=== PATIENT | female | born 1965 | race Hispanic/Latino ===

== ENCOUNTER → 2019-02-15 | Outpatient (CLI) | payer OTHER | END | disposition home or self-care (01) | LOC: RAH 13:51 | PROVIDERS: ATTEND Family Medicine | DX: Z12.31 Encounter for screening mammogram for malignant neoplasm of breast (principal) | CPT/HCPCS: 77067 ==

== ENCOUNTER → 2019-04-23 | Outpatient (CLI) | payer OTHER | END | disposition home or self-care (01) | LOC: RAH 14:06 | PROVIDERS: ATTEND Physical Medicine & Rehabilitation | DX: M41.86 Other forms of scoliosis, lumbar region (principal) | CPT/HCPCS: 72110 ==

== ENCOUNTER → 2019-06-17 | Outpatient (CLI) | payer OTHER | END | disposition home or self-care (01) | LOC: RAH 10:48 | PROVIDERS: ATTEND Family Medicine | DX: N32.89 Other specified disorders of bladder (principal) | CPT/HCPCS: 76856 ==

== ENCOUNTER → 2022-09-13 | Outpatient (CLI) | payer OTHER | END | disposition home or self-care (01) | LOC: RAH 13:57 | PROVIDERS: ATTEND Family Medicine | DX: Z12.31 Encounter for screening mammogram for malignant neoplasm of breast (principal); R92.1 Mammographic calcification found on diagnostic imaging of breast | CPT/HCPCS: 77067 ==

== ENCOUNTER 2024-07-09 09:21 | Emergency (ER) | payer OTHER ==
[~2024-07-09] VITALS: Ht 147.3 cm; Wt 63.5 kg
--- NOTE | 2024-07-09 10:18 | ERN ---
ED Note History of Present Illness Stated Complaint: VOMITING Chief Complaint: Nausea,Vomiting,Diarrhea Time Seen by MD: 09:31 Dictation: The patient is a 58-year-old female who is wheelchair-bound and has a medical history that includes chronic total parenteral nutrition for the past year, a gastric fistula, and an established colostomy, Betlem muscular dystrophy presented to the emergency department with primary complaints of fever and chills that began yesterday. Additionally, she is experiencing nausea, reported 2 episodes of vomiting which includes water and bile, and headaches. For the past year, she has been receiving 1500 cc of total parenteral nutrition daily at home. She was previously admitted to a [place] facility a month ago for sepsis and has returned today, suspecting a possible recurrence of a blood infection. She denies experiencing shortness of breath, weakness, abdominal pain, dizzi ness, or any other symptoms. Allergies: Coded Allergies: No Known Drug Allergies (Unverified Allergy, Unknown, 07/09/24) Home Meds Active Scripts Cephalexin (Cephalexin) 500 Mg Tablet, 1 TAB PO BID for 7 Days, #14 TAB 0 Refills Prov:CASSIDY KRISHNAMURTHY MD 07/09/24 Past Medical History Past Medical History: No Pertinent History Surgical History: Cholecystectomy Surgical History Other: INTESTINAL SURGERY Review of System Dictation REVIEW OF SYSTEMS CONSTITUTIONAL: Denies fevers, chills, or night sweats. No unintentional weight loss reported. NEUROLOGICAL: Denies headache, amaurosis fugax, motor weakness, sensory deficit, vertigo/spinning sensation, gait abnormalities, or tremors. ENT: No hearing loss, otalgia, otorrhea, rhinitis, rhinorrhea, hoarseness, or sore throat. CARDIOVASCULAR: Denies any exertional angina, dyspnea on exertion, orthopnea, paroxysmal nocturnal dyspnea, palpitations, life-threatening arrhythmias, claudication. PULMONARY: Denies any shortness of breath, cough, phlegm/sputum, hemoptysis, pleuritic chest pain. SLEEP: Denies morning headaches, daytime somnolence or napping. Denies difficulty falling asleep, staying asleep, waking from sleep. Denies knowledge of snoring. GASTROINTESTINAL: Denies any type of dysphagia to either liquids or solids. Denies nausea, vomiting, pyrosis, early satiety, abdominal pain, diarrhea, constipation, or changes in stool consistency or caliber. Denies coffee-ground emesis, hematemesis, hematochezia, or melanotic stools. GENITOURINARY: Denies frequency, urgency, nocturia, hematuria or incontinence (Storage/Irritative symptoms.) Low urinary stream, straining to void, urinary intermittency or hesitancy, splitting of the voiding stream, terminal dribbling. ENDOCRINOLOGIC: Denies polyuria, polydipsia, polyphagia or heat/cold intoleranc es. HEMATOLOGIC: Denies thrombophilia/previous clots, or coagulopathy/bleeding disorders. ONCOLOGIC: Denies personal history of malignancy. DERMATOLOGIC: Denies rashes or pruritus. PSYCHIATRIC: Denies any suicidal or homicidal ideation. Denies hallucinations. Initial Vital Sign VS Vital Signs Date Time Temp Pulse Resp B/P (MAP) Pulse Ox O2 Delivery O2 Flow Rate FiO2 07/09/24 09:23 98.2 111 18 121/79 98 07/09/24 10:27 Room Air* 0 21 Physical Exam Dictation PHYSICAL EXAM GENERAL APPEARANCE: The patient is awake, alert, and oriented, in no acute cardiopulmonary distress. NEUROLOGICAL: Cranial nerves II-XII grossly intact. Motor is 5/5 in bilateral upper and lower extremities proximal to distal. No sensory deficits. HEENT: Face is symmetric. Pupils are equal and reactive. Extraocular movements are intact. NECK: Supple. No JVD. No thyromegaly. No submental, submandibular, pre- /postauricular, occipital or supraclavicular lymphadenopathy. CHEST: Normal chest expansion. No Telemetry. LUNGS: Absence of any rales, rhonchi or any wheezing. CARDIOVASCULAR: Regular. S1 and S2 normal. No appreciable rubs, murmurs or gallops. ABDOMEN: Soft, nontender, and nondistended. There is no rebound, voluntary g uarding, or rigidity. : Deferred. No Jack. EXTREMITIES: Non-edematous and not cyanotic. No clubbing. Good capillary refill. SKIN: No skin breakdown. Results (Laboratory/Radiology) Laboratory/Radiology Laboratory Tests Test 07/09/24 10:23 07/09/24 10:57 07/09/24 12:35 White Blood Count 4.8 K/uL (4.8-10.8) Red Blood Count 4.65 MIL/uL (4.00-5.50) Hemoglobin 13.3 g/dL (12.0-16.0) Hematocrit 40.6 % (36-48) Mean Corpuscular Volume 87.3 fL (79-99) Mean Corpuscular Hemoglobin 28.6 pg (27.0-33.0) Mean Corpuscular Hemoglobin Concent 32.8 g/dL (32.0-36.0) Red Cell Distribution Width 14.7 % (11.0-15.5) Platelet Count 158 K/uL (130-400) Mean Platelet Volume 11.0 fL (7.5-10.5) H Immature Granulocyte % (Auto) 0.4 % (0-1) Neutrophils (%) (Auto) 62.0 % (40.0-77.0) Lymphocytes (%) (Auto) 29.3 % (21.0-51.0) Monocytes (%) (Auto) 7.3 % (3.0-13.0) Eosinophils (%) (Auto) 0.6 % (0.0-8.0) Basophils (%) (Auto) 0.4 % (0.0-5.0) Neutrophils # (Auto) 3.0 K/uL (1.8-7.7) Lymphocytes # (Auto) 1.4 K/uL (1.0-4.8) Monocytes # (Auto) 0.4 K/uL (0.1-1.0) Eosinophils # (Auto) 0.03 K/uL (0.00-0.70) Basophils # (Auto) 0.02 K/uL (0.00-0.20) Absolute Immature Granulocyte (auto 0.02 K/uL (0-1) Nucleated Red Blood Cells 0.0 % (0.0-0.19) Sodium Level 137 mmol/L (136-145) Potassium Level 4.0 mmol/L (3.5-5.1) Chloride Level 101 mmol/L (101-111) Carbon Dioxide Level 28 mmol/L (21-32) Blood Urea Nitrogen 21 mg/dL (7-18) H Creatinine 0.2 mg/dL (0.5-1.0) L Glomerular Filtration Rate Calc 137 mL/min (>90) Random Glucose 112 mg/dL (70-105) H Lactic Acid Level 0.9 mmol/L (0.8-2.5) Total Calcium 8.7 mg/dL (8.5-10.1) Total Bilirubin 0.3 mg/dL (0.2-1.0) Aspartate Amino Transf (AST/SGOT) 44 U/L (10-37) H Alanine Aminotransferase (ALT/SGPT) 68 U/L (12-78) Alkaline Phosphatase 143 U/L (50-136) H Total Protein 7.8 g/dL (6.0-8.3) Albumin 3.1 g/dL (3.5-5.0) L Influenza Type A Antigen Negative For Type A Influenza Type B Antigen Negative For Type B SARS-CoV-2 Antigen (Rapid) PRESUMPTIVE NEGATIVE Group A Streptococcus Rapid negative (NEGATIVE) Urine Color YELLOW (YELLOW) Urine Appearance CLOUDY (CLEAR) H Urine pH 7.0 (5.0-8.0) Urine Specific [place] 1.021 (1.001-1.031) Urine Protein 10 mg/dL (NEGATIVE) H Urine Glucose (UA) 500 mg/dL (NEGATIVE) H Urine Ketones NEGATIVE mg/dL (NEGATIVE) Urine Occult Blood NEGATIVE (NEGATIVE) Urine Nitrate NEGATIVE (NEGATIVE) Urine Bilirubin NEGATIVE mg/dL (NEGATIVE) Urine Urobilinogen 0.2 mg/dL (0.2-1.0) Urine Leukocyte Esterase 250 Howie/uL (NEGATIVE) H Urine RBC 2-5 /HPF (0-1) H Urine WBC 51-100 /HPF (0-1) H Urine Squamous Epithelial Cells MANY /HPF (0-2) Urine Bacteria RARE /HPF (None Seen) Urine Yeast FEW /HPF (None Seen) ED Course ED Course Orders Procedure Category Date Status Time Cbc With Differential LAB 07/09/24 Complete 10:10 Comprehensive LAB 07/09/24 Complete Metabolic Panel 10:10 Urinalysis Profile LAB 07/09/24 Complete 10:10 Lactic Acid LAB 07/09/24 Complete 10:10 Ct Abdomen/Pelvis W/O CT 07/09/24 Resulted Contrast 10:10 0.9%Nacl 1000ml (Ns PHA 07/09/24 Complete 1000ml) 10:30 Covid19 (Sars Antigen LAB 07/09/24 Complete Rapid) 10:46 Influenza Type A & B, LAB 07/09/24 Complete Rapid 10:46 Rapid (Group A Strep) LAB 07/09/24 Complete 10:46 Chest 1vw RAD 07/09/24 Resulted 11:57 Culture Urine MIYA 07/09/24 In Process 12:50 Current Medications Medications (Trade) Dose Ordered Sig/Prem Route PRN Reason Start Time Stop Time Status Last Admin Dose Admin Sodium Chloride 1,000 ml @ 0 mls/hr ONCE ONCE IV 07/09/24 10:30 07/09/24 10:31 DC 07/09/24 10:49 Vital Signs Date Time Temp Pulse Resp B/P (MAP) Pulse Ox O2 Delivery O2 Flow Rate FiO2 07/09/24 14:08 98.2 100 16 120/72 98 Room Air* 0 21 07/09/24 10:27 98.2 105 16 120/75 98 Room Air* 0 21 07/09/24 09:23 98.2 111 18 121/79 98 Medical Decision Making MDM MDM Differential diagnosis: Urinary tract infection, acute dehydration, acute kidney injury Rationale: Tests considered and ordered secondary to shared decision making include: Previous outside records reviewed: Old ER visits. Risk of complication and/or morbidity or mortality of patient management: None Medications-Per medication reconciliation Need for hospitalization: Patient does not meet criteria for hospitalization. Need for emergency major/minor surgery: No There are no social concerns with this patient. Prescription drug management Prescriptions will include symptomatic care Patient's prior external medical records from other ER visits were reviewed by me as indicated. Prior testing and results from previous visits were reviewed. Prior tests were taken into account with medical decision making and resource utilization, independent historian/historians were used to obtain complete medical history. I independently interpreted the test that were performed, results were reviewed by me and considered findings on radiology if ordered. DX & DISP Disposition: Discharge Departure Impression: Primary Impression: Urinary tract infection Additional Impressions: Acute dehydration, Acute kidney injury Condition: Stable Scripts Cephalexin (Cephalexin) 500 Mg Tablet 1 TAB PO BID for 7 Days, #14 TAB 0 Refills Prov: CASISDY KRISHNAMURTHY MD 07/09/24 Additional Instructions: Start taking cephalexin 500 mg b.i.d. for 7 days. Hydration is [place]: Drink lots of water throughout the day to dilute your urine and help flush out bacteria causing the infection. Frequent urination: Empty your bladder regularly to prevent bacteria from accumulating. Avoid irritants: Limit drinks like coffee, alcohol, and carbonated beverages which can irritate your bladder. Pain relief: Use a heating pad on your lower abdomen to ease discomfort. Visit the nearest emergency department or call 911 should the symptoms gets worse or does not resolve within a week. Referrals: CHRISTEN JORGE MD (PCP) I have reviewed, & agreed with my scribe's, documentation. I have reviewed the case, and I agree with, Diagnosis and Plan I have examined patient, & reviewed all documents, & agreed W/ the Diagnosis, and Plan CASSIDY KRISHNAMURTHY MD Jul 09, 2024 10:18
[2024-07-09 10:41] LABS: BASOPHILS # (AUTO) 0.02 K/uL (0.00-0.20); BASOPHILS % (AUTO) 0.4 % (0.0-5.0); EOSINOPHILS # (AUTO) 0.03 K/uL (0.00-0.70); EOSINOPHILS % (AUTO) 0.6 % (0.0-8.0); HEMATOCRIT 40.6 % (36-48); IMMATURE GRANULOCYTE ABSOLUTE 0.02 K/uL (0-1); LYMPHOCYTES # (AUTO) 1.4 K/uL (1.0-4.8); LYMPHOCYTES % (AUTO) 29.3 % (21.0-51.0); MEAN CORPUSCULAR HEMOGLOBIN 28.6 pg (27.0-33.0); MEAN CORPUSCULAR HGB CONC 32.8 g/dL (32.0-36.0); MEAN CORPUSCULAR VOLUME 87.3 fL (79-99); MONOCYTES # (AUTO) 0.4 K/uL (0.1-1.0); MONOCYTES % (AUTO) 7.3 % (3.0-13.0); PLATELET COUNT (AUTO) 158 K/uL (130-400); RED BLOOD CELL COUNT(AUTO) 4.65 MIL/uL (4.00-5.50); RED CELL DISTRIBUTION WIDTH 14.7 % (11.0-15.5); WHITE BLOOD COUNT (AUTO) 4.8 K/uL (4.8-10.8)
[2024-07-09 10:49] LABS: CREATININE 0.2 mg/dL (0.5-1.0)
[2024-07-09] MEDS: 0.9%NACL 1000ML 1,000 ML IV ONE (10:49)
[2024-07-09 10:56] LABS: ALBUMIN 3.1 g/dL (3.5-5.0); BILIRUBIN,TOTAL 0.3 mg/dL (0.2-1.0); TOTAL PROTEIN, SERUM 7.8 g/dL (6.0-8.3)
--- NOTE | 2024-07-09 10:58 | HMCIMG ---
Exam Type: CT ABDOMEN/PELVIS W/O CONTRAST Clinical Information: Nausea, Vomitting, H/o Gastric fistula Comparison: None CT Dose Index (CTDI): 10.20 mGy Dose Length Product (DLP): 530.00 total mGy-cm PROTOCOL: Routine noncontrast helical scanning of the abdomen and pelvis was performed at 5mm collimation. Findings: No evidence of nephro or ureterolithiasis is found. No hydronephrosis or ureteral dilatation is seen. The lung bases are clear. Postoperative changes of right upper quadrant small bowel loops seen, with overlying incision as well as partial herniation of proximal transverse colon through the abdominal wall, without incarceration or strangulation. The spleen is unremarkable. It is not enlarged. The pancreas shows normal anatomy. It is not fatty replaced. It shows no lesions. The pancreatic duct is not dilated. The gallbladder is surgically absent. The adrenal glands are unremarkable. There is no enlargement. No lesions are noted. The liver is unremarkable. It shows no focal masses. The appendix is unremarkable. It shows no evidence of inflammation. No appendicolith is seen. The urinary bladder is unremarkable. There is no wall thickening to suggest tumor or inflammation. There are no intraluminal calculi. There are no diverticula. There is no evidence of chronic bladder outlet obstruction. There is no evidence of urinary bladder distention to suggest urinary retention. The other pelvic structures are unremarkable. The bony and vascular structures are unremarkable for the patient's age. IMPRESSION: Postoperative changes as noted. This study was performed using dose reduction techniques to include automated exposure control and/or adjustment of the mA and/or kV according to patient size.
[2024-07-09 11:31] LABS: RAPID GROUP A STREP negative (NEGATIVE)
[2024-07-09 11:44] LABS: COVID19 (SARS ANTIGEN RAPID) PRESUMPTIVE NEGATIVE (NEGATIVE)
[2024-07-09 11:48] LABS: INFLUENZA TYPE A Negative For Type A (NEGATIVE); INFLUENZA TYPE B Negative For Type B (NEGATIVE)
[2024-07-09 12:43] LABS: APPEARANCE,URINE CLOUDY (CLEAR); BILIRUBIN,URINE NEGATIVE (NEGATIVE); COLOR,URINE YELLOW (YELLOW); GLUCOSE, URINE (UA) 500 mg/dL (NEGATIVE); KETONES,URINE NEGATIVE (NEGATIVE); LEUKOCYTE ESTERASE ,URINE 250 Leu/uL (NEGATIVE); NITRATE,URINE NEGATIVE (NEGATIVE); OCCULT BLOOD,URINE NEGATIVE (NEGATIVE); PROTEIN,URINE 10 mg/dL (NEGATIVE); UROBILINOGEN,URINE 0.2 mg/dL (0.2-1.0)
[2024-07-09 12:49] LABS: ADD UA MICROSCOPIC YES
[2024-07-09 12:53] LABS: BACTERIA,URINE RARE /HPF (None Seen); MUCUS,URINE RARE LPF (None Seen); SQUAMOUS EPITHELIAL CELL,UR MANY /HPF (0-2); WBC,URINE 51-100 /HPF (0-1); YEAST,URINE BUDDING FEW /HPF (None Seen)
--- NOTE | 2024-07-09 13:22 | HMCIMG ---
Exam Type: CHEST 1VW Clinical Information: Fever, tachycardia Comparison: None Findings: Right central line in place. No pneumothorax. The lungs are clear of infiltrates. The heart is normal in size. The bony and soft tissue structures of the chest are unremarkable. Impression: Clear lungs.
[2024-07-09] MEDS ORDERED: CEPH500T PO (13:33)
[2024-07-09 14:08] VITALS: BP 120/72; PULSE 100; RESP 16; TEMP 98.3; O2SAT 98
== END 2024-07-09 14:13 | disposition home or self-care (01) ==
LOC: EDH 09:21
DX: N17.9 Acute kidney failure, unspecified (principal); N39.0 Urinary tract infection, site not specified; E86.0 Dehydration; Z90.49 Acquired absence of other specified parts of digestive tract; Z20.822 Contact with and (suspected) exposure to COVID-19
CPT/HCPCS: 99284; 74176; 71045; 87426; 80053; 85025; 87086; 87880; 87804 ×2; 83605; 81001; 36415; J7030

== ENCOUNTER 2024-08-22 06:37 | Inpatient (IN) | payer OTHER ==
[~2024-08-22] VITALS: Ht 147.3 cm; Wt 67.6 kg
[~2024-08-22 06:37] MED LIST: CEPH500T PO
--- NOTE | 2024-08-22 06:41 | NUR ---
[employer] HEL[employer] AWARE OF PT AND BEDDING NEED
--- NOTE | 2024-08-22 07:04 | ERN ---
ED Note History of Present Illness Stated Complaint: FEVER, N/V Chief Complaint: Sepsis Time Seen by MD: 07:00 Dictation: The patient is a 58-year-old female who is wheelchair-bound presented to the emergency department with primary complaints of fever and chills that began yesterday. Additionally, she is experiencing nausea, reported 10 episodes of vomiting which includes water and bile. She has been receiving 1500 cc of total parenteral nutrition daily at home. She has been admitted to [facility] with sepsis and also here in July. Apparently she had a fever of 103 at home. Temp is 100.4 pulse 147, respirations 18 blood pressure 125/70 with a pulse oximetry of 96% on room air Her chronic medical problems include chronic total parenteral nutrition for the past year, a gastric fistula, and an established colostomy, Betlem muscular dystrophy Allergies: Coded Allergies: No Known Drug Allergies (Unverified Allergy, Unknown, 07/09/24) Home Meds Active Scripts Cephalexin (Cephalexin) 500 Mg Tablet, 1 TAB PO BID for 7 Days, #14 TAB 0 Refills Prov:CASSIDY KRISHNAMURTHY MD 07/09/24 Past Medical History Past Medical History: No Pertinent History Surgical History: Cholecystectomy, Surgical History Other: INTESTINAL SURGERY,LIVER,RT FOOT Family History: Negative Social History: Negative RN Note Reviewed/Agreed w/PFSH: Yes Review of System Dictation Constitutional: Positive for fever,chills, and weight loss Eyes: Negative for injury, pain,redness, and discharge ENT: Negative for injury,pain or swelling Cardiovascular: Negative for chest pain, palpitations, and edema Respiratory: Negative for shortness of breath, cough, and wheezing, Abdomen/GI: Negative for abdominal pain, positive for nausea, vomiting, diarrhea, Back: Negative for injury and pain : Negative for injury, bleeding and discharge MS/Extremity: Negative for injury and deformity Skin: Negative for rash, and discoloration Neuro: Negative for headache, weakness, numbness, tingling, and seizure Psych: Negative for suicide ideation, homicidal ideation, and hallucinations Initial Vital Sign VS Vital Signs Date Time Temp Pulse Resp B/P (MAP) Pulse Ox O2 Delivery O2 Flow Rate FiO2 08/22/24 06:38 100.0 147 18 125/70 96 Room Air 08/22/24 09:41 0 21 Physical Exam Dictation General: awake, alert, NAD Head/Face: Normocephalic, atraumatic Eyes: PERRL, EOMI, vision at baseline ENT: oral cavity clear, TMs clear, no signs of infection Neck: Trachea midline, supple, no nuchal rigidity Cardiovascular: RRR, normal S1/S2, No MRGs, no JVD Respiratory: CTAB, no respiratory distress, No rales or wheezes Abdomen: Soft, non-tender, non-distended, normal bowel sounds, no guarding or rebound. Skin: Warm, dry, normal turgor, no rash MS/Extremity: Pulses equal, no cyanosis, neurovascular intact, FROM Neuro: COAx4, GCS 15, strength 5/5, CN 2-12 intact, normal cerebellar exam, normal gait, Psych: Normal behavior, mood, and affect normal Extremities-trace edema without any palpable cords, Homans sign is negative Results (Laboratory/Radiology) Laboratory/Radiology Laboratory Tests Test 08/22/24 07:37 08/22/24 09:30 08/22/24 11:01 White Blood Count 7.1 K/uL (4.8-10.8) Red Blood Count 4.60 MIL/uL (4.00-5.50) Hemoglobin 12.3 g/dL (12.0-16.0) Hematocrit 38.2 % (36-48) Mean Corpuscular Volume 83.0 fL (79-99) Mean Corpuscular Hemoglobin 26.7 pg (27.0-33.0) L Mean Corpuscular Hemoglobin Concent 32.2 g/dL (32.0-36.0) Red Cell Distribution Width 16.8 % (11.0-15.5) H Platelet Count 163 K/uL (130-400) Mean Platelet Volume 10.0 fL (7.5-10.5) Immature Granulocyte % (Auto) 1.0 % (0-1) Neutrophils (%) (Auto) 84.0 % (40.0-77.0) H Lymphocytes (%) (Auto) 8.4 % (21.0-51.0) L Monocytes (%) (Auto) 6.3 % (3.0-13.0) Eosinophils (%) (Auto) 0.0 % (0.0-8.0) Basophils (%) (Auto) 0.3 % (0.0-5.0) Neutrophils # (Auto) 6.0 K/uL (1.8-7.7) Lymphocytes # (Auto) 0.6 K/uL (1.0-4.8) L Monocytes # (Auto) 0.5 K/uL (0.1-1.0) Eosinophils # (Auto) 0.00 K/uL (0.00-0.70) Basophils # (Auto) 0.02 K/uL (0.00-0.20) Absolute Immature Granulocyte (auto 0.07 K/uL (0-1) Nucleated Red Blood Cells 0.0 % (0.0-0.19) White Cell Morphology Comment See comments Sodium Level 134 mmol/L (136-145) L Potassium Level 3.5 mmol/L (3.5-5.1) Chloride Level 99 mmol/L (101-111) L Carbon Dioxide Level 30 mmol/L (21-32) Blood Urea Nitrogen 16 mg/dL (7-18) Creatinine 0.3 mg/dL (0.5-1.0) L Glomerular Filtration Rate Calc 124 mL/min (>90) Random Glucose 142 mg/dL (70-105) H Lactic Acid Level 1.3 mmol/L (0.8-2.5) Total Calcium 8.6 mg/dL (8.5-10.1) Total Creatine Kinase 50 U/L (21-232) # Troponin I High Sensitivity 20 ng/L (4-50) Urine Color LIGHT-YELLOW (YELLOW) Urine Appearance CLOUDY (CLEAR) H Urine pH 6.5 (5.0-8.0) Urine Specific [place] 1.033 (1.001-1.031) Urine Protein NEGATIVE mg/dL (NEGATIVE) Urine Glucose (UA) 50 mg/dL (NEGATIVE) H Urine Ketones 5 mg/dL (NEGATIVE) H Urine Occult Blood NEGATIVE (NEGATIVE) Urine Nitrate NEGATIVE (NEGATIVE) Urine Bilirubin NEGATIVE mg/dL (NEGATIVE) Urine Urobilinogen 0.2 mg/dL (0.2-1.0) Urine Leukocyte Esterase 25 Howie/uL (NEGATIVE) H Urine RBC 0-1 /HPF (0-1) Urine WBC 11-25 /HPF (0-1) H Urine Squamous Epithelial Cells MANY /HPF (0-2) Urine Bacteria MOD /HPF (None Seen) Influenza Type A Antigen Negative For Type A Influenza Type B Antigen Negative For Type B SARS-CoV-2, RNA, NAAT NEGATIVE SARS CoV-2 Group A Streptococcus Rapid negative (NEGATIVE) Labs Reviewed?: Yes ED Course ED Course Orders Procedure Category Date Status Time Iv Insertion CPOE 08/22/24 Transmitted 07:00 Pulse Ox(Continuous) RT 08/22/24 Transmitted 07:00 Vital Signs Per CPOE 08/22/24 Transmitted Routine 07:00 12 Lead Ekg Tracing- EKG 08/22/24 Logged Technical 07:00 Cbc With Differential LAB 08/22/24 Complete 07:00 Culture Urine MIYA 08/22/24 In Process 07:00 Creatine Kinase, Total LAB 08/22/24 Complete 07:00 Lactic Acid LAB 08/22/24 Complete 07:00 Basic Metabolic Panel LAB 08/22/24 Complete 07:00 Blood Cult MIYA 08/22/24 In Process 06:54 Urinalysis Profile LAB 08/22/24 Complete 06:54 0.9%Nacl 1000ml (Ns PHA 08/22/24 Complete 1000ml) 07:00 Troponin I High LAB 08/22/24 Complete Sensitivity 06:54 Chest 1vw RAD 08/22/24 Resulted 06:54 Ct Abdomen/Pelvis CT 08/22/24 Resulted W/Wo Contras 06:54 Iohexol (Omnipaque) PHA 08/22/24 Complete 07:18 Influenza Type A & B, LAB 08/22/24 Complete Rapid 09:53 Covid Rna Naat LAB 08/22/24 Complete 09:53 Rapid (Group A Strep) LAB 08/22/24 Complete 09:53 Ondansetron 4mg Inj PHA 08/22/24 Complete (Zofran 4mg Inj) 11:30 Ondansetron 4mg Inj PHA 08/22/24 Complete (Zofran 4mg Inj) 11:25 Ceftriaxone 1g Vial PHA 08/22/24 Complete (Rocephine 1g Inj) 12:00 Current Medications Medications (Trade) Dose Ordered Sig/Prem Route PRN Reason Start Time Stop Time Status Last Admin Dose Admin Ceftriaxone Sodium (ROCEphine 1G INJ) 1 gm ONCE ONCE IVPB 08/22/24 12:00 08/22/24 12:01 DC Iohexol (Omnipaque) 75 ml STK-MED ONCE IV 08/22/24 07:18 08/22/24 07:19 DC Ondansetron HCl (zoFRAN 4MG INJ) 4 mg ONCE ONCE IVP 08/22/24 11:30 08/22/24 11:31 DC 08/22/24 11:33 Ondansetron HCl (zoFRAN 4MG INJ) 4 mg STK-MED ONCE .ROUTE 08/22/24 11:25 08/22/24 11:25 DC Sodium Chloride 1,905 ml @ 635 mls/hr ONCE ONCE IV 08/22/24 07:00 08/22/24 09:59 DC 08/22/24 08:03 Vital Signs Date Time Temp Pulse Resp B/P (MAP) Pulse Ox O2 Delivery O2 Flow Rate FiO2 08/22/24 09:41 99.0 114 18 126/73 98 Room Air* 0 21 08/22/24 06:38 100.0 147 18 125/70 96 Room Air We will perform diagnostic labs, advanced imaging and administer medications according to the patient's complaint. Once the results are available, will review and personally interpreted the labs to rule out any acute life- threatening emergency the trach require immediate intervention and treatment. I will then re-evaluate the patient after treatment and diagnostic exams have return to determine whether the patient requires any further testing, can safely be discharged home or need further admission to hospital for additional treatment and evaluation. Medical Decision Making MDM MDM: Differential diagnosis: Sepsis likely intra-abdominal, could be aspiration pneumonia, UTI, fungemia as patient is on TPN Rationale: Tests considered and ordered secondary to shared decision making include: labs, ECG and radiology Previous outside records reviewed: Old ER visits. Risk of complication and/or morbidity or mortality of patient management: None Medications-Per medication reconciliation Need for hospitalization: Patient does meet criteria for hospitalization. Need for emergency major/minor surgery: No There are no social concerns with this patient. Prescription drug management Prescriptions will include symptomatic care Patient's prior external medical records from other ER visits were reviewed by me as indicated. Prior testing and results from previous visits were reviewed. Prior tests were taken into account with medical decision making and resource utilization, independent historian/historians were used to obtain complete medical history. I independently interpreted the test that were performed, results were reviewed by me and considered findings on radiology if ordered. Medical management and examination interpretation discussions were had by me with other qualified healthcare professionals as indicated for the patient's care. PATIENT WILL BE ADMITTED UNDER THE CARE OF [facility] FOR ONGOING MANAGEMENT. Problem List Problem List: (1) Severe sepsis (2) Gastric fistula (3) Nausea & vomiting (4) On total parenteral nutrition Critical Care Note Comment(s) CRITICAL CARE PROCEDURE NOTE AUTHORIZED AND PERFORMED BY: ME TOTAL CRITICAL CARE TIME: APPROXIMATELY 36 MINUTES DUE TO A HIGH PROBABILITY OF CLINICALLY SIGNIFICANT, LIFE THREATENING DET ERIORATION, THE PATIENT REQUIRED MY HIGHEST LEVEL OF PREPAREDNESS TO INTERVENE EMERGENTLY AND I PERSONALLY SPENT THIS CRITICAL CARE TIME DIRECTLY AND PERSONALLY MANAGING THE PATIENT. THIS CRITICAL CARE TIME INCLUDED OBTAINING A HISTORY; EXAMINING THE PATIENT; PULSE OXIMETRY; ORDERING AND REVIEW OF STUDIES; ARRANGING URGENT TREATMENT WITH DEVELOPMENT OF A MANAGEMENT PLAN; EVALUATION OF PATIENT'S RESPONSE TO TREATMENT; FREQUENT REASSESSMENT; AND, DISCUSSIONS WITH OTHER PROVIDERS. THIS CRITICAL CARE TIME WAS PERFORMED TO ASSESS AND MANAGE THE HIGH PROBABILITY OF IMMINENT, LIFE-THREATENING DETERIORATION THAT COULD RESULT IN MULTI-ORGAN FAILURE. IT WAS EXCLUSIVE OF SEPARATELY BILLABLE PROCEDURES AND TREATING OTHER PATIENTS AND TEACHING TIME. PLEASE SEE MDM SECTION AND THE REST OF THE NOTE FOR FURTHER INFORMATION ON PATIENT ASSESSMENT AND TREATMENT. DX & DISP Disposition: Inpatient Decision to Admit Time: 07:03 Departure Impression: Primary Impression: Severe sepsis Additional Impressions: Gastric fistula, Nausea & vomiting, On total parenteral nutrition Condition: Stable Additional Instructions: Patient was informed of all the diagnostic labs and procedures conducted in the emergency room today and demonstrated understanding of the results. I personally reviewed and interpreted all the diagnostic exams performed in the ER today. The patient will be admitted to the hospital for further treatment and evaluation. Disposition-admit to facility Condition-stable/guarded Course-uncertain at this time Pain status-decreased Assessment-exam unchanged Admission Certification- I certify that the patients status is appropriate and is based on my best clinical judgment and the patient's condition as documented in the medical records Referrals: CHRISTEN JORGE MD (PCP) MARY GOMEZ MD Aug 22, 2024 07:04 BLU STEPHENS MD Aug 22, 2024 13:14
--- NOTE | 2024-08-22 07:15 | NUR ---
PENDING GFR RESULTS, IV SITE, & CONSENT FOR CT EXAM.
[2024-08-22] MEDS ORDERED: IOHEXOL-350 75 ML VIAL IV ONE (07:18)
[2024-08-22 07:53] LABS: BASOPHILS # (AUTO) 0.02 K/uL (0.00-0.20); BASOPHILS % (AUTO) 0.3 % (0.0-5.0); HEMATOCRIT 38.2 % (36-48); IMMATURE GRANULOCYTE ABSOLUTE 0.07 K/uL (0-1); LYMPHOCYTES # (AUTO) 0.6 K/uL (1.0-4.8); LYMPHOCYTES % (AUTO) 8.4 % (21.0-51.0); MEAN CORPUSCULAR HEMOGLOBIN 26.7 pg (27.0-33.0); MEAN CORPUSCULAR HGB CONC 32.2 g/dL (32.0-36.0); MONOCYTES # (AUTO) 0.5 K/uL (0.1-1.0); MONOCYTES % (AUTO) 6.3 % (3.0-13.0); PLATELET COUNT (AUTO) 163 K/uL (130-400); RED CELL DISTRIBUTION WIDTH 16.8 % (11.0-15.5); WHITE BLOOD COUNT (AUTO) 7.1 K/uL (4.8-10.8)
[2024-08-22] MEDS: 0.9%NACL 1000ML 1,905 ML IV ONE (08:03)
[2024-08-22 08:10] LABS: CREATININE 0.3 mg/dL (0.5-1.0); POTASSIUM 3.5 mmol/L (3.5-5.1)
--- NOTE | 2024-08-22 08:28 | HMCIMG ---
CHEST 1VW HISTORY: Sepsis COMPARISON: 07/09/2024 FINDINGS: A frontal projection of the chest was obtained. Prominent interstitial markings are seen with possible superimposed infiltrates. The heart is borderline enlarged. Degenerative changes are seen. No evidence of aortic calcification is seen. IMPRESSION: 1. Prominent interstitial markings are seen with possible superimposed infiltrates.
--- NOTE | 2024-08-22 09:36 | HMCIMG ---
CT ABDOMEN/PELVIS W/WO CONTRAS HISTORY: Sepsis COMPARISON: 07/09/2024 TECHNIQUE: Multiple sequential axial images of the abdomen and pelvis were obtained from the dome of the diaphragm through symphysis pubis. Patient was given 75 cc of Omnipaque through intravenous route. Oral contrast was not given. FINDINGS: No pleural effusion is seen bilaterally. There is no evidence of parenchymal disease or pulmonary nodule of the visualized lower lungs. Degenerative changes of the thoracolumbar spine are present. The heart is not enlarged. Liver measures 16.4 cm. Fatty changes of the liver are noted. There appears to be gastric fistula with radiopaque material. Postop changes are seen in the anterior upper abdomen. The liver, spleen, adrenal glands and pancreas are unremarkable. There is no evidence of hydronephrosis bilaterally. Tiny 2 mm right renal pelvic stone is seen. There all bilateral extrarenal pelvis. There are bilateral ventral hernia is in mid abdomen with bowel content with right more than left. Fecal material is seen in the colon. There are normal size retroperitoneal and mesenteric lymph nodes. No ascites is seen. Atherosclerotic changes are present. There is diverticulosis. Pelvic sidewalls are symmetric bilaterally. Bladder is well distended without wall thickening. IMPRESSION: 1. There appears to be a gastric fistula with radiopaque material. Postop changes are seen in the anterior upper abdomen. There are bilateral ventral hernias with bowel content mostly on the right. Tiny right renal pelvic stone is seen. There is bilateral extrarenal pelvis. CT was performed with one or more following dose reduction techniques: automated exposure control, adjustment of the mA and kv according to patient's size, or use of a iterative reconstruction technique.
[2024-08-22 09:41] LABS: APPEARANCE,URINE CLOUDY (CLEAR); BILIRUBIN,URINE NEGATIVE (NEGATIVE); COLOR,URINE LIGHT-YELLOW (YELLOW); GLUCOSE, URINE (UA) 50 mg/dL (NEGATIVE); KETONES,URINE 5 mg/dL (NEGATIVE); LEUKOCYTE ESTERASE ,URINE 25 Leu/uL (NEGATIVE); NITRATE,URINE NEGATIVE (NEGATIVE); OCCULT BLOOD,URINE NEGATIVE (NEGATIVE); PH,URINE 6.5 (5.0-8.0); PROTEIN,URINE NEGATIVE (NEGATIVE); UROBILINOGEN,URINE 0.2 mg/dL (0.2-1.0)
[2024-08-22 09:42] LABS: ADD UA MICROSCOPIC YES
[2024-08-22 09:47] LABS: BACTERIA,URINE MOD /HPF (None Seen); MUCUS,URINE RARE LPF (None Seen); RBC,URINE 0-1 /HPF (0-1); SQUAMOUS EPITHELIAL CELL,UR MANY /HPF (0-2)
[2024-08-22 11:24] LABS: RAPID GROUP A STREP negative (NEGATIVE)
[2024-08-22 11:28] LABS: SARS-CoV-2, RNA, NAAT NEGATIVE SARS CoV-2 (NEGATIVE)
[2024-08-22 11:33] LABS: INFLUENZA TYPE A Negative For Type A (NEGATIVE); INFLUENZA TYPE B Negative For Type B (NEGATIVE)
[2024-08-22] MEDS: ondanSETRON 4MG INJ ONE (11:33)
[2024-08-22] MEDS: ondanSETRON 4MG INJ IVP ONE (11:33)
[2024-08-22] MEDS: hydroMORPHone 0.5 MG SYG (0.5MG/0.5ML) IM PRN (14:31)
[2024-08-22] MEDS: cefTRIAXone 1G VIAL IVPB ONE (14:31)
--- NOTE | 2024-08-22 15:26 | EKG ---
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
[2024-08-22] MEDS ORDERED: acetaMINOPHEN 325 MG TAB PO PRN ×2 (15:30)
[2024-08-22] MEDS ORDERED: DiphenhydrAMINE HCL 50 MG/ML VIAL IV PRN (15:30)
[2024-08-22] MEDS ORDERED: PHARMACY COMMUNICATION MISC SCH (15:30)
[2024-08-22] MEDS ORDERED: VANCOMYCIN PROTOCOL PER PHARMACY IV SCH (15:30)
[2024-08-22] MEDS ORDERED: ARTIFICAL TEARS SOL 15 ML OP PRN (15:30)
[2024-08-22] MEDS ORDERED: hydrALAZine 25MG TABLET PO PRN (15:30)
[2024-08-22] MEDS: DEXTROSE 5 % AND 0.9 % NACL 1,000 ML IV SCH (15:47)
[2024-08-22] MEDS: metRONIDazole 500MG/100ML BAG IV SCH (15:47)
[2024-08-22 15:59] LABS: AMYLASE 37 U/L (25-115)
[2024-08-22] MEDS: VANCOMYCIN 1.5 GM/250 ML BAG 250 ML IV ONE ×2 (16:00→18:42)
[2024-08-22] MEDS: ceFEPime HCL 1 GM VIAL IVPB SCH (16:22)
[2024-08-22] MEDS ORDERED: PANT40TA54 PO (16:49)
[2024-08-22] MEDS ORDERED: TRAM100T34 PO (16:56)
[2024-08-22 17:30] VITALS: O2SAT 97
--- NOTE | 2024-08-22 17:30 | NUR ---
PATIENT ARRIVED TO UNIT. NO S/S OF DISTRESS NOTED. MOM AT BEDSIDE. OPEN AREA NOTED TO RT UPPER QUAD WITH MODERATE SEROUS DRAINAGE PRESENT. TELE IN PLACE. CENTRAL LINE TO RT UPPER CHEST INTACT AND CURRENTLY RUNNING IV ANTIBIOTICS. BED IN LOWEST POSITION CALL LIGHT IN REACH
[2024-08-22 17:55] VITALS: BP 113/66; PULSE 107; RESP 18; TEMP 98.8
[2024-08-22 19:00] VITALS: BP 128/74; PULSE 100; RESP 20; TEMP 98
[2024-08-22 19:01] VITALS: PULSE 102; RESP 20; O2SAT 96
[2024-08-22] MEDS: SODIUM CHLORIDE 3% FOR INHALATION 4 ML/AMP VIAL.NEB IH ONE ×2 (19:01→23:11)
[2024-08-22] MEDS: IpraTROPium 0.5 MG/2.5 ML INH IH SCH (19:01)
[2024-08-22 19:51] VITALS: O2SAT 95
[2024-08-22] MEDS: CLINIMIX-E 5%AA /D15%W 2000ML 2,000 ML IV ONE (19:51)
--- NOTE | 2024-08-22 20:46 | HP ---
[facility] HISTORY & PHYSICAL Date Patient Seen: Aug 22, 2024 Time of Visit: 20:45 Supervising Physician: Dr. Robbi Mehta Primary Care Physician: CHRISTEN JORGE MD (PCP) Outpatient Specialists: Inpatient Consults: Dr. 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 The patient also reported nausea, 10 episodes of vomiting which includes water and bile. She has been receiving 1500 cc of total parenteral nutrition daily at home. She has been admitted to [place] facility with sepsis and also here in July. Vital signs on arrival to ED: Temp is 100.4F, pulse 147bpm, respirations 18bpm, blood pressure 125/70 with a pulse oximetry of 96% on room air. I went to assess patient at bedside in room 407. Labs reviewed: WBCs and lactic acid WNL. Negative influenza and COVID swabs. The patient appeared comfortable, breathing was even and unlabored, in no distress. Patient reported that she was just given pain medication which helped. She reports that after her 1st surgery a surgeon lacerated the liver at [facility], was transferred to [facility] where she was there for one month then went to rehab for two weeks. She reports issue with a fistula since three years ago, complications after surgery including abdominal dehiscence, perforations, complications with prior hernia repairs. Patient was tearful and reported being tired of so many abdominal surgical complications. She reports that she was referred to a general surgeon in [place] for the abdominal complications for which she was hospitalized one month ago for sepsis. RN reports that Dr. Dayana Gonzales was consulted and will see the patient tomorrow as consults. RN reports that patient has cultures 2/2 sets are positive for Gr am-positive cocci. The patient's urine is positive for leukocyte esterase. CT abdomen and pelvis without contrast: There appears to be a gastric fistula with radiopaque material. Postop changes are seen in the anterior upper abdomen. There are bilateral ventral hernias with bowel content mostly on the right. Tiny right renal pelvic stone is seen. There is bilateral extrarenal pelvis. Chest x-ray: Prominent interstitial markings are seen with possible superimposed infiltrates. The patient has been receiving vancomycin IV, cefepime IV, and Flagyl IV. She was started on TPN. I informed patient of labs, diagnostics, and plan of care. I answered her multiple questions. She verbalizes understanding and is in agreement with the plan. Plan and assessment are listed below. PAST MEDICAL HX: see above PAST SURGICAL HX: Intestinal surgery, hernia repairs, liver surgery, right foot surgery, C- sections, cholecystectomy SOCIAL HISTORY: No tobacco, ETOH, or illicit drug use Coded Allergies: No Known Drug Allergies (Unverified Allergy, Unknown, 07/09/24) REVIEW OF SYSTEMS: 12 point ROS reviewed with patient. Pertinent positives mentioned above. Otherwise negative. PHYSICAL EXAM: GENERAL: Alert, weak, awake oriented x 3 HEENT: EOMI, Sclera non icteric, moist mucosa NECK: Supple, no JVD, trachea midline LUNGS: Clear breath sounds bilaterally. No wheezes HEART: Regular rate and rhythm. Normal S1 and S2, without murmurs ABD: Well-healed vertical abdominal incision. Upper abdominal skin has large amount of excoriation from clear fluid draining on the abdominal skin. Notable large right lower abdominal hernia. Abdomen soft, generalized abdominal tender ness. Bowel sounds hypoactive. EXT: No clubbing cyanosis or edema. Right hand contractures. NEURO: Alert and oriented X3, follows commands, Vital Signs (last 8hr) Date Time Temp Pulse Resp B/P (MAP) Pulse Ox O2 Delivery O2 Flow Rate FiO2 08/22/24 19:01 102 20 08/22/24 19:01 102 20 N/A Room Air 21 08/22/24 17:55 98.8 107 18 113/66 93 Room Air 08/22/24 17:30 97 Room Air* 0 08/22/24 16:46 98.1 106 18 99/57 97 Room Air* 0 21 08/22/24 15:15 98.2 108 16 100/56 97 Room Air* 0 21 08/22/24 13:00 98.8 110 18 117/72 99 Room Air* 0 21 LABS: Hematology Labs: Test 08/22/24 07:37 Range/Units White Blood Count 7.1 4.8-10.8 K/uL Red Blood Count 4.60 4.00-5.50 MIL/uL Hemoglobin 12.3 12.0-16.0 g/dL Hematocrit 38.2 36-48 % Mean Corpuscular Volume 83.0 79-99 fL Mean Corpuscular Hemoglobin 26.7 L 27.0-33.0 pg Mean Corpuscular Hemoglobin Concent 32.2 32.0-36.0 g/dL Red Cell Distribution Width 16.8 H 11.0-15.5 % Platelet Count 163 130-400 K/uL Mean Platelet Volume 10.0 7.5-10.5 fL Immature Granulocyte % (Auto) 1.0 0-1 % Neutrophils (%) (Auto) 84.0 H 40.0-77.0 % Lymphocytes (%) (Auto) 8.4 L 21.0-51.0 % Monocytes (%) (Auto) 6.3 3.0-13.0 % Eosinophils (%) (Auto) 0.0 0.0-8.0 % Basophils (%) (Auto) 0.3 0.0-5.0 % Neutrophils # (Auto) 6.0 1.8-7.7 K/uL Lymphocytes # (Auto) 0.6 L 1.0-4.8 K/uL Monocytes # (Auto) 0.5 0.1-1.0 K/uL Eosinophils # (Auto) 0.00 0.00-0.70 K/uL Basophils # (Auto) 0.02 0.00-0.20 K/uL Absolute Immature Granulocyte (auto 0.07 0-1 K/uL Nucleated Red Blood Cells 0.0 0.0-0.19 % White Cell Morphology Comment See comments Chemistry Labs: Test 08/22/24 07:37 Range/Units Sodium Level 134 L 136-145 mmol/L Potassium Level 3.5 3.5-5.1 mmol/L Chloride Level 99 L 101-111 mmol/L Carbon Dioxide Level 30 21-32 mmol/L Blood Urea Nitrogen 16 7-18 mg/dL Creatinine 0.3 L 0.5-1.0 mg/dL Glomerular Filtration Rate Calc 124 >90 mL/min Random Glucose 142 H 70-105 mg/dL Lactic Acid Level 1.3 0.8-2.5 mmol/L Total Calcium 8.6 8.5-10.1 mg/dL Total Creatine Kinase 50 # 21-232 U/L Troponin I High Sensitivity 20 4-50 ng/L Amylase Level 37 25-115 U/L Lipase 31 16-77 U/L DIAGNOSTICS / RADIOLOGY RESULTS: [ ] PLAN The patient was admitted to medical floor under the service of BIS team. Continue NPO for now. TPN has been started, will continue. General surgeon has been consulted. Dr. Dayana Gonzales we will see patient tomorrow. Continue antibiotic therapy: Vancomycin IV, cefepime IV, and Flagyl IV. Blood cultures two of two positive for Gram-positive cocci. Follow urine cultures. Consult infectious disease for recurrent sepsis. P.r.n. medications for: Pain management, fever, nausea, vomiting. Glucometer checks a.c. and HS with insulin regular sliding scale coverage as nee ded. Blood pressure checks every 4 hours and as needed. Reconcile home medications once available. Monitor renal and liver function. Monitor electrolytes and treat accordingly. A.m. labs: CBC, CMP, Mag, phos, TSH, A1c. GI and DVT prophylaxis: Pepcid and SCDs. Monitor respiratory status closely. Albuterol and Atrovent as needed for shortness of breath. RT to provide IS and education on use. Further orders per hospitalization course. NEURO: Minimize central acting medications as possible. Maintain fall precautions, adequate lighting during the day PULMONARY: Supplemental 02 as needed. Maintain aspiration precautions at all times CARDIOVASCULAR: Follow hemodynamics. Vital signs per facility protocol GI & NUTRITION: Continue with nutritional support. Continue stool softeners and laxatives as needed. KIDNEYS & ELECTROLYTES: Strict monitoring of intake, output and overall fluid balance. Avoid nephrotoxic medications to the extent possible. Medications to be dosed according to renal function. Monitor electrolytes and replace as needed ENDOCRINE: Maintain blood glucose between 100-180 at all times. Hypoglycemia protocol in place INFECTIOUS DISEASE: Trend temperature, WBC and procalcitonin level Follow cultures, deescalate antibiotics as soon as possible. Panculture if new onset fever ONCOLOGY/HEMATOLOGY/COAGULATION: Monitor for s/s of bleeding Monitor hemoglobin, coagulation studies as needed SKIN: Pressure ulcer prevention per facility protocol Specialty mattress ORTHO/REHAB: Continue PT/OT Prophylaxis: Continue GI and DVT prophylaxis Code Status: Full Resuscitation Disposition: ARTEM ARMENTA Aug 22, 2024 20:46
--- NOTE | 2024-08-22 20:54 | NUR ---
Nursing Note Spoke with Polly Rowell HAND LOOM WEAVER. Informed her of pt's BC coming back positive gram positive /. No orders since pt is on antibiotics. She also gave the order to change the Dilaudid order from IM to IV push. No other orders at this time.
[2024-08-22] MEDS: FAMOTIDINE 20MG VIAL IV SCH (21:13)
[2024-08-22] MEDS: hydroMORPHone 0.5 MG SYG (0.5MG/0.5ML) IVP PRN (21:13)
[2024-08-22 23:11] VITALS: PULSE 97; RESP 20
[2024-08-23] VITALS (24 sets, daily range): BP systolic 100–154; BP diastolic 53–77; PULSE 72–107; RESP 17–20; TEMP 97.9–99.1; O2SAT 95–97
[2024-08-23] MEDS ORDERED: MAGNESIUM 2GM PREMIX 50ML 50 ML IV PRN
[2024-08-23] MEDS ORDERED: DEXTROSE 50%-WATER 50 ML DISP.SYRIN IV PRN
[2024-08-23] MEDS ORDERED: GLUCAGON 1MG KIT 1 MG ML IM PRN
[2024-08-23] MEDS: ondanSETRON 4MG INJ IV PRN (00:26)
[2024-08-23 02:45] LABS: HEMOGLOBIN A1C 6.2 % (4.0-6.0)
[2024-08-23] MEDS: VANCOMYCIN 1.25 GM/250 ML BAG 250 ML IV SCH (03:36)
[2024-08-23 04:55] LABS: HEMATOCRIT 31.7 % (36-48); MEAN CORPUSCULAR HEMOGLOBIN 26.2 pg (27.0-33.0); MEAN CORPUSCULAR HGB CONC 31.5 g/dL (32.0-36.0); RED BLOOD CELL COUNT(AUTO) 3.82 MIL/uL (4.00-5.50); RED CELL DISTRIBUTION WIDTH 16.9 % (11.0-15.5); WHITE BLOOD COUNT (AUTO) 4.5 K/uL (4.8-10.8)
[2024-08-23 05:18] LABS: ALBUMIN 2.2 g/dL (3.5-5.0); BILIRUBIN,DIRECT 0.1 mg/dL (0.0-0.3); BILIRUBIN,TOTAL 0.3 mg/dL (0.2-1.0); CREATININE 0.2 mg/dL (0.5-1.0); THYROID STIMULATING HORMONE 2.17 uIU/mL (0.36-3.74); TOTAL PROTEIN, SERUM 5.9 g/dL (6.0-8.3)
[2024-08-23] MEDS: PoTASSium chloRIDE 10MEQ/100ML 100 ML IV PRN (06:10)
[2024-08-23] MEDS: SODIUM CHLORIDE 3% FOR INHALATION 4 ML/AMP VIAL.NEB IH ONE (10:22)
--- NOTE | 2024-08-23 14:00 | CONS ---
GENERAL SURGERY CONSULTATION NOTE Date/Time Patient Seen: [ ] Requesting Physician: [ ] Reason for Consultation: [ ] History of Present Illness: 68-year-old female with a complicated surgical history. Back in 2019 she had a cholecystectomy that was complicated with a what she calls the liver injury but sounds like a bile duct injury. Was then transferred to [place] in were Dr. Higgins the did surgery on her and had a biliary reconstruction. 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 Had that surgically repair and after that repair developed a gastrocutaneous fistula that has been followed in [place]. She reports that four weeks ago she had a plug placed to try to close the fistula. And they told her that it would a take between 4-8 weeks to work. She had reported less output from the fistula until about a week ago that it started draining more. She reports a two days ago she started with fevers nausea and vomiting. She has been in long-term TPN. Past Medical History: As per HPI Past Surgical History: As per HPI Habits: [Never] smoker. [Denies] alcohol consumption. [Denies] illicit drug use Current Medications Medications (Trade) Dose Ordered Sig/[facility] Route Start Time Stop Time Status Last Admin Dose Admin Cefepime HCl (MAXipime 1 GM vial) 1 gm Q12H IVPB 08/22/24 15:30 09/01/24 15:29 08/23/24 03:34 1 GM Dextrose/Sodium Chloride 1,000 ml @ 75 mls/hr [id number] IV 08/22/24 15:30 09/21/24 15:29 08/22/24 15:47 75 MLS/HR Famotidine (Pepcid 20mg Vial) 20 mg BID IV 08/22/24 21:00 09/21/24 20:59 08/23/24 08:55 20 MG Ipratropium Cameron (AtrovENT UD) 0.5 mg [id number] IH 08/22/24 18:00 09/21/24 17:59 08/23/24 11:08 0.5 MG Metronidazole/ Sodium Chloride (flaGYL) 500 mg Q8H IV 08/22/24 15:30 09/01/24 15:29 08/23/24 08:55 500 MG Pharmacy Profile Note (Pharmacy Communication) 1 each ONCE MISC 08/22/24 15:30 08/22/24 15:28 DC Vancomycin HCl 250 ml @ 125 mls/hr Q8H IV 08/23/24 03:00 09/02/24 02:59 08/23/24 11:43 125 MLS/HR Vancomycin HCl (Vancomycin Protocol) 1 each AD IV 08/22/24 15:30 09/05/24 15:29 Review of Systems: Chronic TPN. Had fevers for two days. No chest pain. No shortness of breath. Physical Examination: GENERAL: [No acute distress.] HEAD: [Normal with no signs of head trauma.] EYES: [PERRLA, NECK: Trachea midline LUNGS: [Clear breath sounds bilaterally. HEART: [Normal rate and rhythm. ABD: [Bowel sounds normal, soft, nontender, stoma at the epigastrium. With the minimal drainage of gastric contents. Has a wafer around it to control spillage. Minimal erythema of the skin EXT: [No edema.] SKIN: Rash around the gastrostomy site NEURO: [Awake, alert, and oriented x3. Vital Signs (last 8hr) Date Time Temp Pulse Resp B/P (MAP) Pulse Ox O2 Delivery O2 Flow Rate FiO2 08/23/24 12:00 99.1 102 18 123/71 96 Room Air 08/23/24 11:08 97 20 08/23/24 09:00 95 Room Air* 0 21 08/23/24 08:00 98.1 98 19 116/72 95 Room Air 08/23/24 07:55 102 20 N/A Room Air 21 08/23/24 06:38 102 20 Laboratory: [ ] Hematology Labs: Test 08/23/24 04:07 08/22/24 07:37 Range/Units White Blood Count 4.5 #L 4.8-10.8 K/uL Red Blood Count 3.82 L 4.00-5.50 MIL/uL Hemoglobin 10.0 L 12.0-16.0 g/dL Hematocrit 31.7 L 36-48 % Mean Corpuscular Volume 83.0 79-99 fL Mean Corpuscular Hemoglobin 26.2 L 27.0-33.0 pg Mean Corpuscular Hemoglobin Concent 31.5 L 32.0-36.0 g/dL Red Cell Distribution Width 16.9 H 11.0-15.5 % Platelet Count 149 130-400 K/uL Mean Platelet Volume 10.8 H 7.5-10.5 fL Nucleated Red Blood Cells 0.0 0.0-0.19 % Immature Granulocyte % (Auto) 1.0 0-1 % Neutrophils (%) (Auto) 84.0 H 40.0-77.0 % Lymphocytes (%) (Auto) 8.4 L 21.0-51.0 % Monocytes (%) (Auto) 6.3 3.0-13.0 % Eosinophils (%) (Auto) 0.0 0.0-8.0 % Basophils (%) (Auto) 0.3 0.0-5.0 % Neutrophils # (Auto) 6.0 1.8-7.7 K/uL Lymphocytes # (Auto) 0.6 L 1.0-4.8 K/uL Monocytes # (Auto) 0.5 0.1-1.0 K/uL Eosinophils # (Auto) 0.00 0.00-0.70 K/uL Basophils # (Auto) 0.02 0.00-0.20 K/uL Absolute Immature Granulocyte (auto 0.07 0-1 K/uL White Cell Morphology Comment See comments Chemistry Labs: Test 08/23/24 04:20 08/23/24 04:07 08/22/24 07:37 Range/Units Procalcitonin 1.27 H 0.05-0.5 ng/mL Sodium Level 134 L 136-145 mmol/L Potassium Level 3.0 *L 3.5-5.1 mmol/L Chloride Level 100 L 101-111 mmol/L Carbon Dioxide Level 29 21-32 mmol/L Blood Urea Nitrogen 10 7-18 mg/dL Creatinine 0.2 L 0.5-1.0 mg/dL Glomerular Filtration Rate Calc 137 >90 mL/min Random Glucose 170 H 70-105 mg/dL Total Calcium 7.7 L 8.5-10.1 mg/dL Total Bilirubin 0.3 0.2-1.0 mg/dL Direct Bilirubin 0.1 0.0-0.3 mg/dL Aspartate Amino Transf (AST/SGOT) 30 10-37 U/L Alanine Aminotransferase (ALT/SGPT) 48 12-78 U/L Alkaline Phosphatase 128 50-136 U/L Total Protein 5.9 L 6.0-8.3 g/dL Albumin 2.2 L 3.5-5.0 g/dL Thyroid Stimulating Hormone (TSH) 2.17 0.36-3.74 uIU/mL Hemoglobin A1c 6.2 H 4.0-6.0 % Estimated Average Glucose (eAG) 131 H 70-126 mg/dL Lactic Acid Level 1.3 0.8-2.5 mmol/L Total Creatine Kinase 50 # 21-232 U/L Troponin I High Sensitivity 20 4-50 ng/L Amylase Level 37 25-115 U/L Lipase 31 16-77 U/L Diagnostics / Radiology: [Copy/Paste Echos/Imaging Report here] Assessment: Patient with chronic gastrocutaneous fistula. Patient was already being foll owed in [place] for this reason and had a recent procedure to plug it. She already has her surgeons of there. For now just conservative and management of the drainage keep skin as dry as possible. If needed apply skin barrier around the skin to decrease the cellulitis. No surgical intervention. She needs to follow up with her surgeons in [place] Plan: [ ] LATRICIA FLAHERTY MD Aug 23, 2024 14:00
[2024-08-23 14:54] LABS: INR 1.18 (0.85-1.15); PROTHROMBIN TIME 12.3 SEC (9.6-11.6)
[2024-08-23 14:55] LABS: PARTIAL THROMBOPLASTIN TIME 31.2 SEC (26.3-35.5)
--- NOTE | 2024-08-23 15:00 | NUR ---
Order received and eval attempted. Patient off the floor for Perm-A-cath placement. PT team to follow.
--- NOTE | 2024-08-23 15:30 | NUR ---
DCP Patient states lives with Yohannes Monk, Spouse [phone] and two daughters in a house with a ramp entrance and walking shower. States she is disabled , remains independent, and does not drive. States shower chair, bedside commode, Jordi lift, and wheelchair scooter. Denies home care provider or dialysis. [facility] provides a nurse once a week for PICC line dressing change. PCP - Christina Grace MD Pharm[facility] - [facility]. Upon discharge, Yohannes Monk, Spouse [phone] and assist with care, as needed. MD KING -- Blood infection, six month PICC line to be removed and continue TPN diet Addendum: 08/23/24 at 1534 by OLIVIER KIRKLAND RN CM Amended: Links added.
[2024-08-23] MEDS ORDERED: LIDOCAINE HCL 400MG/20ML VIAL ONE (15:41)
[2024-08-23] MEDS ORDERED: HEParin-NS 1,000 UNIT/500 ML 500 ML IV ONE (15:41)
[2024-08-23] MEDS ORDERED: FENTanyl CITRate PF 50 MCG/1 ML 2ML VIAL ONE (15:43)
[2024-08-23] MEDS ORDERED: MIDAZOLAM HCL 1 MG/ML 2ML VIAL ONE (15:43)
--- NOTE | 2024-08-23 16:25 | NUR ---
ROSAS REMOVAL Patient back in room from cath procedure. Aox4, hob 45 deg. No s/sx distress. Right chest wall site cdi.
--- NOTE | 2024-08-23 16:44 | HMCSR ---
APPROVED REPORT EXAM: Two-dimensional and M-mode echocardiogram with Doppler and color Doppler. INDICATION ICD: Bacteremia R78.81 2D Dimensions RVDd3.4 cmLVEF(%)64.8 (>50%)LVED Vol(simp.)51.1 mL IVSd0.9 (0.7-1.1cm)FS(%)35 %LVES Vol(simp.)21.8 mL LVDd3.9 (3.8-5.6cm)LA (2D)3.3 (1.6-4.0cm)LVEF(%, simp.)57 % PWd0.8 (0.7-1.1cm)Ao Root(2D)2.8 (2.0-3.7cm)LA ESV INDEX (BP)31.54 mL/m2 LVDs2.5 (2.5-4.0cm)LVOT diam1.8 (1.8-2.4cm) M-Mode Dimensions LA (MM)2.8 (1.6-4.0cm) Ao Root(MM)2.8 (2.0-3.7cm) Aortic Valve AoV Vmax1.8 m/Michael Peak GR12.9 mmHgLVOT Vmax1.5 m/s AoV VTI0.3 mAo Mean GR6.1 mmHgLVOT VTI0.29 m BERTA (VMAX)2.3 cm2AVA (VTI) 2.3 cm2 Mitral Valve MV E Vmax88.9 cm/sDECEL Auxg486 ms MV A Vmax76.8 cm/sP 1/2 T49 ms E/A ratio1.2MVA (PHT)4.5 cm2 TDI E/E' [id number] Left Ventricle The left ventricle is normal size. There is normal LV segmental wall motion. There is normal left vipin tricular wall thickness. The Ejection Fraction is 55-60%. The left ventricular diastolic function is normal. Right Ventricle The right ventricle is normal size. The right ventricular systolic function is normal. Atria The left atrium size is normal. The right atrium size is normal. Aortic Valve The aortic valve is normal in structure. No aortic regurgitation is present. No aortic valvular veget ation noted. There is no aortic valvular stenosis. Mitral Valve The mitral valve is normal in structure. There is no mitral valve regurgitation noted. There are no m itral valve vegetation noted. There is no mitral valve stenosis. Tricuspid Valve The tricuspid valve is normal in structure. There is no tricuspid valve regurgitation noted. There is no tricuspid valve vegetation. Pulmonic Valve The pulmonary valve is normal in structure. There is no pulmonic valvular regurgitation. There is no pulmonic valve vegetaion. Great Vessels The aortic root is normal in size. The IVC was not visualized. Pericardium There is no pericardial effusion. Conclusion The Ejection Fraction is 55-60%.
--- NOTE | 2024-08-23 17:48 | PN ---
[facility] PROGRESS NOTE Date Patient Seen: Aug 23, 2024 Time of Visit: 17:44 Supervising Physician: AFUA TORREZ MD Primary Care Physician: CHRISTEN JORGE MD (PCP) Outpatient Specialists: Inpatient Consults: Dr. 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, POA, Chronic NPO status , on TPN at home Intractable Nausea and vomiting, POA, resolved Electrolyte derangement (hyponatremia, hypochloremia) Hyperglycemia without history of diabetes mellitus Chronic problem list: multiple abdominal surgeries, gastric fistula s/p TPN for the past year, established colostomy, [place] muscular dystrophy, wheelchair- bound, and tachycardic INTERVAL HISTORY: Patient was seen and examined today by me, the patient was lying in bed, weak, deconditioned, She has been with low-grade fevers of 99.1 overnight, intermittent tachycardia that has improved since admission on antibiotic therapy of vancomycin cefepime and Flagyl. CBC reveals hemodilution, potassium of 3.0, sodium 134. BUN 10 creatinine of 0.2. At this time we will go ahead and remove the patient's right upper chest line, ID was consulted and we will continue on IV antibiotic therapy. Regarding her nutrition the patient will be placed on peripheral parenteral nutrition. Dr. gonzales has evaluated, pending recs REVIEW OF SYSTEMS: 12 point ROS reviewed with patient. Pertinent positives mentioned above. Otherwise negative. PHYSICAL EXAM: GENERAL: Alert, weak, awake oriented x 3 HEENT: EOMI, Sclera non icteric, moist mucosa NECK: Supple, no JVD, trachea midline LUNGS: Clear breath sounds bilaterally. No wheezes HEART: Regular rate and rhythm. Normal S1 and S2, without murmurs ABD: Well-healed vertical abdominal incision. Upper abdominal skin has large amount of excoriation from clear fluid draining on the abdominal skin. Notable large right lower abdominal hernia. Abdomen soft, generalized abdominal tenderness. Bowel sounds hypoactive. EXT: No clubbing cyanosis or edema. Right hand contractures. NEURO: Alert and oriented X3, follows commands, Vital Signs (last 8hr) Date Time Temp Pulse Resp B/P (MAP) Pulse Ox O2 Delivery O2 Flow Rate FiO2 3/24/25 16:21 99.1 105 17 114/71 95 Room Air 08/23/24 12:00 99.1 102 18 123/71 96 Room Air 08/23/24 11:08 97 20 LABS: Hematology Labs: Test 08/23/24 04:07 08/22/24 07:37 Range/Units White Blood Count 4.5 #L 4.8-10.8 K/uL Red Blood Count 3.82 L 4.00-5.50 MIL/uL Hemoglobin 10.0 L 12.0-16.0 g/dL Hematocrit 31.7 L 36-48 % Mean Corpuscular Volume 83.0 79-99 fL Mean Corpuscular Hemoglobin 26.2 L 27.0-33.0 pg Mean Corpuscular Hemoglobin Concent 31.5 L 32.0-36.0 g/dL Red Cell Distribution Width 16.9 H 11.0-15.5 % Platelet Count 149 130-400 K/uL Mean Platelet Volume 10.8 H 7.5-10.5 fL Nucleated Red Blood Cells 0.0 0.0-0.19 % Immature Granulocyte % (Auto) 1.0 0-1 % Neutrophils (%) (Auto) 84.0 H 40.0-77.0 % Lymphocytes (%) (Auto) 8.4 L 21.0-51.0 % Monocytes (%) (Auto) 6.3 3.0-13.0 % Eosinophils (%) (Auto) 0.0 0.0-8.0 % Basophils (%) (Auto) 0.3 0.0-5.0 % Neutrophils # (Auto) 6.0 1.8-7.7 K/uL Lymphocytes # (Auto) 0.6 L 1.0-4.8 K/uL Monocytes # (Auto) 0.5 0.1-1.0 K/uL Eosinophils # (Auto) 0.00 0.00-0.70 K/uL Basophils # (Auto) 0.02 0.00-0.20 K/uL Absolute Immature Granulocyte (auto 0.07 0-1 K/uL White Cell Morphology Comment See comments Chemistry Labs: Test 08/23/24 04:20 08/23/24 04:07 08/22/24 07:37 Range/Units Procalcitonin 1.27 H 0.05-0.5 ng/mL Sodium Level 134 L 136-145 mmol/L Potassium Level 3.0 *L 3.5-5.1 mmol/L Chloride Level 100 L 101-111 mmol/L Carbon Dioxide Level 29 21-32 mmol/L Blood Urea Nitrogen 10 7-18 mg/dL Creatinine 0.2 L 0.5-1.0 mg/dL Glomerular Filtration Rate Calc 137 >90 mL/min Random Glucose 170 H 70-105 mg/dL Total Calcium 7.7 L 8.5-10.1 mg/dL Total Bilirubin 0.3 0.2-1.0 mg/dL Direct Bilirubin 0.1 0.0-0.3 mg/dL Aspartate Amino Transf (AST/SGOT) 30 10-37 U/L Alanine Aminotransferase (ALT/SGPT) 48 12-78 U/L Alkaline Phosphatase 128 50-136 U/L Total Protein 5.9 L 6.0-8.3 g/dL Albumin 2.2 L 3.5-5.0 g/dL Thyroid Stimulating Hormone (TSH) 2.17 0.36-3.74 uIU/mL Hemoglobin A1c 6.2 H 4.0-6.0 % Estimated Average Glucose (eAG) 131 H 70-126 mg/dL Lactic Acid Level 1.3 0.8-2.5 mmol/L Total Creatine Kinase 50 # 21-232 U/L Troponin I High Sensitivity 20 4-50 ng/L Amylase Level 37 25-115 U/L Lipase 31 16-77 U/L Coagulation Labs: Test 08/23/24 14:30 Range/Units Prothrombin Time 12.3 H 9.6-11.6 SEC Prothromb Time International Ratio 1.18 H 0.85-1.15 Activated Partial Thromboplast Time 31.2 26.3-35.5 SEC DIAGNOSTICS / RADIOLOGY RESULTS: [ ] PLAN Continue NPO for now. PPN , peripheal line to be startd REmove thompson . . General surgeon has been consulted. Dr. Dayana Gonzales Continue antibiotic therapy: Vancomycin IV, cefepime IV, and Flagyl IV. Blood cultures two of two positive for Gram-positive cocci. echo eval for endocarditis Follow urine cultures. Procal level Consulted infectious disease for recurrent sepsis. P.r.n. medications for: Pain management, fever, nausea, vomiting. Glucometer checks a.c. and HS with insulin regular sliding scale coverage as needed. Blood pressure checks every 4 hours and as needed. Reconcile home medications once available. Monitor renal and liver function. Monitor electrolytes and treat accordingly. A.m. labs: CBC, CMP, Mag, phos, TSH, A1c. GI and DVT prophylaxis: Pepcid and SCDs. Monitor respiratory status closely. Albuterol and Atrovent as needed for shortness of breath. RT to provide IS and education on use. Further orders per hospitalization course. NEURO: Minimize central acting medications as possible. Maintain fall precautions, adequate lighting during the day PULMONARY: Supplemental 02 as needed. Maintain aspiration precautions at all times CARDIOVASCULAR: Follow hemodynamics. Vital signs per facility protocol GI & NUTRITION: Continue with nutritional support. Continue stool softeners and laxatives as needed. KIDNEYS & ELECTROLYTES: Strict monitoring of intake, output and overall fluid balance. Avoid nephrotoxic medications to the extent possible. Medications to be dosed according to renal function. Monitor electrolytes and replace as needed ENDOCRINE: Maintain blood glucose between 100-180 at all times. Hypoglycemia protocol in place INFECTIOUS DISEASE: Trend temperature, WBC and procalcitonin level Follow cultures, deescalate antibiotics as soon as possible. Panculture if new onset fever ONCOLOGY/HEMATOLOGY/COAGULATION: Monitor for s/s of bleeding Monitor hemoglobin, coagulation studies as needed SKIN: Pressure ulcer prevention per facility protocol Specialty mattress ORTHO/REHAB: Continue PT/OT Prophylaxis: Continue GI and DVT prophylaxis Code Status: Full Resuscitation Disposition: TBD Total patient care time is 35 minutes AD MIR Aug 23, 2024 17:48
--- NOTE | 2024-08-23 19:10 | CONS ---
INFECTIOUS DISEASE CONSULTATION DATE OF SERVICE: 08/23/2024. REQUESTING PHYSICIAN: CECILIO Joel. REASON FOR CONSULTATION: Gram-positive sepsis and antibiotic management. HISTORY OF PRESENT ILLNESS: A 58-year-old female with history of muscular dystrophy, gastric fistula, who presented to the hospital with fever and chills. The patient's T-max at home was 100.3. The patient came to the emergency room due to persistent fever, chills, and diaphoresis. The patient found with sepsis and has been admitted. Blood culture drawn on admission growing gram-positive cocci in cluster. The patient has been started on vancomycin and cefepime. The patient has history of gastrocutaneous fistula for which she is on chronic TPN for more than 3 years. The patient has a Mcgrath catheter in the right side, which was placed about 6 months ago. No cough. No hemoptysis or pleuritic pain. No bleeding tendency. Urinalysis is also positive. The patient found with electrolyte imbalance. PAST MEDICAL HISTORY: * Muscular dystrophy. * Cholecystitis. * Gastrocutaneous fistula. PAST SURGICAL HISTORY: * Cholecystectomy. * Exploratory laparotomy for history of pancreatic laceration. ALLERGIES: No known drug allergy. CURRENT MEDICATIONS: Reviewed. SOCIAL HISTORY: No alcohol, tobacco, or illicit drug use. FAMILY HISTORY: Noncontributory. REVIEW OF SYSTEMS: Greater than 10 systems were reviewed, negative except as documented above. CONSTITUTIONAL: Positive for fever and chills. No weight loss or night sweats. EYES: No eye pain. No photophobia or diplopia. HENT: No sore throat, no rhinorrhea or earache. NECK: No neck pain or neck swelling. RESPIRATORY: No cough. No hemoptysis or pleuritic pain. CARDIOVASCULAR: No chest pain. No palpitation or orthopnea. GASTROINTESTINAL: Denied nausea, vomiting, or abdominal pain. GENITOURINARY: No dysuria, urgency, or urinary frequency. CENTRAL NERVOUS SYSTEM: No headache, dyspnea, or slurred speech. PSYCHIATRY: No depression. No suicidal ideation. MUSCULOSKELETAL: No joint pain or joint swelling. PHYSICAL EXAMINATION: GENERAL: A middle-aged female, awake. VITAL SIGNS: Temperature 98.1, pulse 102, respiratory rate 18, BP 122/74. EYES: No icterus. Pupils equal and reactive. HENT: No oral thrush seen. Moist oral mucosa. NECK: Supple, no JVD or thyromegaly. LUNGS: Good air entry. No rales, no rhonchi. CARDIOVASCULAR: S1, S2 regular. No murmur heard. ABDOMEN: Obese, soft. Bowel sound is present. fistula in the epigastric area. CENTRAL NERVOUS SYSTEM: Awake, alert, and oriented x 3. No focal deficit. Bedbound debility. SKIN: No rashes. LYMPHATIC: No peripheral lymphadenopathy. BACK: No deformity, no pressure ulcer. HEMATOLOGIC: No bleeding or petechial lesion seen. MUSCULOSKELETAL: No joint swelling, erythema, or tenderness. LABORATORY DATA: Procalcitonin 1.27. Sodium 134, potassium 3.0, BUN 10, creatinine 0.2. WBC 4.5, hemoglobin 10.0, platelets 149. Urinalysis; wbc's 25 leukocyte esterase 25. Influenza antigen negative. Urine culture growing gram-positive cocci. RADIOLOGY: CT of the abdomen showed ventral hernia and gastrocutaneous fistula. ASSESSMENT: A 58-year-old female presenting with fever. CURRENT PROBLEMS: Include: * Gram-positive sepsis and bacteremia. * Chronic gastrocutaneous fistula. * Hypokalemia. * History of muscular dystrophy. * Bedbound status. PLAN: * Continue cefepime. * Continue vancomycin. * Continue wound care. * Mcgrath catheter will need to be removed. * Continue nutritional support. * Monitor electrolytes. * Continue DVT prophylaxis. * The patient will be followed up closely. Thank you for allowing me to participate in the care of this patient. TID: [id number] RECEIPT: [id number]
[2024-08-23] MEDS ORDERED: CLINIMIX-E 5%AA /D15%W 2000ML 2,000 ML IV NR (20:00)
[2024-08-23] MEDS: VANCOMYCIN 1G/250ML KIT 250 ML IV SCH (21:17)
[2024-08-23] MEDS: CLINIMIX-E4.25%AA/D5+LYT2000ML 2,000 ML IV ONE (21:33)
[2024-08-24] VITALS (11 sets, daily range): BP systolic 129–157; BP diastolic 67–85; PULSE 85–157; RESP 17–20; TEMP 97.5–98.2; O2SAT 95–97
[2024-08-24 05:42] LABS: BASOPHILS # (AUTO) 0.02 K/uL (0.00-0.20); BASOPHILS % (AUTO) 0.4 % (0.0-5.0); EOSINOPHILS # (AUTO) 0.06 K/uL (0.00-0.70); EOSINOPHILS % (AUTO) 1.3 % (0.0-8.0); HEMATOCRIT 32.9 % (36-48); IMMATURE GRANULOCYTE ABSOLUTE 0.02 K/uL (0-1); LYMPHOCYTES # (AUTO) 1.4 K/uL (1.0-4.8); LYMPHOCYTES % (AUTO) 30.4 % (21.0-51.0); MEAN CORPUSCULAR HEMOGLOBIN 26.9 pg (27.0-33.0); MEAN CORPUSCULAR HGB CONC 32.2 g/dL (32.0-36.0); MEAN CORPUSCULAR VOLUME 83.5 fL (79-99); MONOCYTES # (AUTO) 0.4 K/uL (0.1-1.0); MONOCYTES % (AUTO) 9.3 % (3.0-13.0); NEUTROPHILS # (AUTO) 2.8 K/uL (1.8-7.7); NEUTROPHILS % (AUTO) 58.2 % (40.0-77.0); PLATELET COUNT (AUTO) 137 K/uL (130-400); RED BLOOD CELL COUNT(AUTO) 3.94 MIL/uL (4.00-5.50); RED CELL DISTRIBUTION WIDTH 16.8 % (11.0-15.5); WHITE BLOOD COUNT (AUTO) 4.7 K/uL (4.8-10.8)
[2024-08-24 06:18] LABS: ALBUMIN 2.5 g/dL (3.5-5.0); BILIRUBIN,TOTAL 0.4 mg/dL (0.2-1.0); CREATININE 0.2 mg/dL (0.5-1.0); MAGNESIUM 2.1 mg/dL (1.80-2.40); POTASSIUM 4.1 mmol/L (3.5-5.1); TOTAL PROTEIN, SERUM 6.5 g/dL (6.0-8.3)
--- NOTE | 2024-08-24 12:46 | PRN ---
[employer] PROCEDURE REQUEST---REMOVAL OF TUNNELLED CATHETER INDICATION: bacteremia FINDINGS: Catheter is patent and intact. No evidence of erythema or purulent exudate from the catheter entrance site. PROCEDURE: Informed consent obtained from the patient. Previously placed right jugular tunneled Mcgrath catheter was prepped and draped in sterile fashion. Local anesthesia performed of the catheter entrance site with 5 mL of 1% lidocaine servin bcutaneous. Blunt dissection was then performed with the catheter freed from the insertion site. Distal tip the catheter was cut and submitted for culture and sensitivity. Hemostasis pressure obtained of the catheter entrance site with direct compression. Patient tolerated procedure well. No evidence of complication. Post procedure fluoroscopic image of the chest demonstrates the catheter to been removed in total. IMPRESSION: Removal of tunneled right Mcgrath catheter. Distal tip of the catheter submitted for cultures. CURTIS GILMAN DO Aug 24, 2024 12:46
--- NOTE | 2024-08-24 12:49 | HMCIMG ---
HEALTH ACTU[facility] PROCEDURE REQUEST---REMOVAL OF TUNNELLED CATHETER INDICATION: bacteremia FINDINGS: Catheter is patent and intact. No evidence of erythema or purulent exudate from the catheter entrance site. PROCEDURE: Informed consent obtained from the patient. Previously placed right jugular tunneled Mcgrath catheter was prepped and draped in sterile fashion. Local anesthesia performed of the catheter entrance site with 5 mL of 1% lidocaine subcutaneous. Blunt dissection was then performed with the catheter freed from the insertion site. Distal tip the catheter was cut and submitted for culture and sensitivity. Hemostasis pressure obtained of the catheter entrance site with direct compression. Patient tolerated procedure well. No evidence of complication. Post procedure fluoroscopic image of the chest demonstrates the catheter to been removed in total. IMPRESSION: Removal of tunneled right Mcgrath catheter. Distal tip of the catheter submitted for cultures.
--- NOTE | 2024-08-24 14:31 | NUR ---
[facility] Consult: Patient assessed by wound healing team. See wound assessment. Assessment and recommendations provided to primary nurse. Education provided. Addendum: 08/25/24 at 1415 by RADHA DE OLIVEIRA RN RN/ Amended: Links added.
--- NOTE | 2024-08-24 15:40 | PN ---
INFECTIOUS DISEASE PROGRESS NOTE Date of Service: Aug 24, 2024 SUBJECTIVE: This is a 58-year-old female patient who was seen and examined at bedside in room 407. Patient is awake, alert, a little slow to respond to questions but she is oriented x3. The abdominal drainage culture came back positive for Kaylyn albicans and the final blood culture results came back positive for Enterococcus faecalis. We will discontinue metronidazole and start patient on fluconazole 200 mg IV daily. Patient will also continue on cefepime IV and vancomycin per pharmacy protocol. Patient is afebrile, temperature 97.7 and the WBC is 4.7. The Mcgrath catheter was removed yesterday. Family member visiting at bedside. No other issues reported by nursing. PHYSICAL EXAM EYES: Anicteric. Pupils equal and reactive. HENT: No oral thrush seen, moist Oral mucosa. NECK: Supple, no JVD or thyromegaly. LUNGS: Good air entry. No rales, no rhonchi. CARDIOVASCULAR: S1, S2 regular. No murmur heard. ABDOMEN: Soft, non tender, bowel sounds present, no organomegaly. Colostomy. Gastric fistula. CENTRAL NERVOUS SYSTEM: Awake, alert, oriented x 3. No focal deficits. SKIN: No rashes, no swelling. LYMPHATICS: No peripheral lymphadenopathy MUSCULOSKELETAL: No joint swelling, erythema or tenderness. EXTREMITIES: No cyanosis or clubbing. BACK: No deformity, no pressure ulcer. GENITOURINARY: No dysuria or hematuria. Vital Sign (Last 12 Hours) 08/24/24 08/24/24 08/24/24 08/24/24 06:32 06:32 07:50 09:00 Temp 98.2 Pulse 101 101 98 Resp 20 20 18 B/P (MAP) 129/67 Pulse Ox 95 95 O2 Delivery N/A Room Air Room Air Room Air* O2 Flow Rate 0 FiO2 21 21 08/24/24 08/24/24 08/24/24 11:10 11:11 11:23 Temp 97.7 Pulse 85 85 98 Resp 20 20 18 B/P (MAP) 129/71 Pulse Ox 97 O2 Delivery N/A Room Air Room Air FiO2 21 Intake & Output (last 24hrs) 08/23/24 08/23/24 08/24/24 15:00 23:00 07:00 Output Total 500 ml Balance -500 ml LABS: Laboratory: Test 08/24/24 05:21 08/23/24 17:51 08/23/24 14:30 08/23/24 04:20 Range/Units White Blood Count 4.7 L 4.8-10.8 K/uL Red Blood Count 3.94 L 4.00-5.50 MIL/uL Hemoglobin 10.6 L 12.0-16.0 g/dL Hematocrit 32.9 L 36-48 % Mean Corpuscular Volume 83.5 79-99 fL Mean Corpuscular Hemoglobin 26.9 L 27.0-33.0 pg Mean Corpuscular Hemoglobin Concent 32.2 32.0-36.0 g/dL Red Cell Distribution Width 16.8 H 11.0-15.5 % Platelet Count 137 130-400 K/uL Mean Platelet Volume 10.2 7.5-10.5 fL Immature Granulocyte % (Auto) 0.4 0-1 % Neutrophils (%) (Auto) 58.2 40.0-77.0 % Lymphocytes (%) (Auto) 30.4 21.0-51.0 % Monocytes (%) (Auto) 9.3 3.0-13.0 % Eosinophils (%) (Auto) 1.3 0.0-8.0 % Basophils (%) (Auto) 0.4 0.0-5.0 % Neutrophils # (Auto) 2.8 1.8-7.7 K/uL Lymphocytes # (Auto) 1.4 1.0-4.8 K/uL Monocytes # (Auto) 0.4 0.1-1.0 K/uL Eosinophils # (Auto) 0.06 0.00-0.70 K/uL Basophils # (Auto) 0.02 0.00-0.20 K/uL Absolute Immature Granulocyte (auto 0.02 0-1 K/uL Nucleated Red Blood Cells 0.0 0.0-0.19 % Sodium Level 139 136-145 mmol/L Potassium Level 4.1 3.5-5.1 mmol/L Chloride Level 105 101-111 mmol/L Carbon Dioxide Level 27 21-32 mmol/L Blood Urea Nitrogen 17 7-18 mg/dL Creatinine 0.2 L 0.5-1.0 mg/dL Glomerular Filtration Rate Calc 137 >90 mL/min Random Glucose 126 H 70-105 mg/dL Total Calcium 7.8 L 8.5-10.1 mg/dL Magnesium Level 2.10 1.80-2.40 mg/dL Total Bilirubin 0.4 0.2-1.0 mg/dL Aspartate Amino Transf (AST/SGOT) 30 10-37 U/L Alanine Aminotransferase (ALT/SGPT) 47 12-78 U/L Alkaline Phosphatase 134 50-136 U/L Total Protein 6.5 6.0-8.3 g/dL Albumin 2.5 L 3.5-5.0 g/dL Vancomycin Level Trough 18.6 10.0-20.0 UG/ML Prothrombin Time 12.3 H 9.6-11.6 SEC Prothromb Time International Ratio 1.18 H 0.85-1.15 Activated Partial Thromboplast Time 31.2 26.3-35.5 SEC Procalcitonin 1.27 H 0.05-0.5 ng/mL Test 08/23/24 04:07 Range/Units Direct Bilirubin 0.1 0.0-0.3 mg/dL Thyroid Stimulating Hormone (TSH) 2.17 0.36-3.74 uIU/mL DIAGNOSTICS / RADIOLOGY: PATIENT: ABENA ANTONY ACCT: [id number] LOC: [facility] U: [id number] AGE/SX: 58/F ROOM: [facility] RE08/22/[address]: AFUA TORREZ MD : 1965 BED: 1 DIS: STATUS: ADM IN TLOC: SPEC: [id number] VINNY: 08/22/24 STATUS: COMP REQ: [id number] RECD: 08/22/24-[address]: MARY GOMEZ MD SOURCE: BLOOD ENTR: 08/22/[address]: [facility]: AERO ID & SENS Procedure Result Carlos Date-Time AEROBIC ID & SENSITIVITIES Final 08/24/24-0804 MRL COLONY DESCRIPTION: DAY 1: GRAM POSITIVE COCCI IN CHAINS IDENTIFICATION AND SENSITIVITY TO FOLLOW AEROBIC BOTTLE ENTEROCOCCUS FAECALIS E FAECALIS M.I.C. RX --------- ---- AMPICILLIN <=2 S VANCOMYCIN 1 S GENTAMICIN Synergy Screen <=500 S PENICILLIN 2 S ENTEROCOCCUS FAECALIS: POSITIVE COMBO 34 Gentamicin Synergy Screen S ASSESSMENT: Enterococcus faecalis bacteremia. 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 Sepsis, status post removal of Mcgrath catheter. Urinary tract infection. History of muscular dystrophy. Bed-bound status. PLAN: Discontinue Flagyl IV. Start fluconazole 200 mg IV daily. Continue vancomycin per pharmacy protocol. Continue cefepime IV We will repeat blood cultures in a.m. We will monitor electrolytes. This case was reviewed and discussed with my supervising physician and the above assessment and plan was formulated and agreed upon. ATTESTATION BY PHYSICIAN I have seen and examined the patient. I reviewed the documentation, medical decision making, and treatment plan as noted by the mid-level provider above. I agree with the findings and plan of care. JACQUELINE GEORGE MD, MIRTA L [facility] Aug 24, 2024 15:40
--- NOTE | 2024-08-24 15:51 | NUR ---
Notes: Met with pt. Pt reports her TPN is preprogramed at home, runs TPN for 12 hours does not recall the rate and Climinix mixture she uses at home. Reports 10 lb. weight gain since gastric fistula due to increase in protein intake. PT not able to recall how long shes been on TNP PPN rec to meet Pts protein needs Current PPN @ 83.333 ml/hr. provides 85 gm of protein, 100 gm of dextrose, and [address] recommendation of PPN Below: When medically feasible and cleared by MD, consider Clinimix 5/15 via peripheral line at a rate of 83.3 ml/hr Include 10 ml adult MVI and 3ml trace elements Goal rate provides 100 gm of protein, 300 gm of dextrose 1420 kcals. 3 x weekly lipid emulsion to prevent essential fatty acid deficiency GIR 3.3 mg/kg/min Nutrition Concerns: Recommendations: Provide PPN Clinimix 5/15 at goal rate of 83.33 ml/hr. to meet pt protein needs. Order zinc, copper, lipid panel, selenium, manganese, folate, vit. A, D, E, B1, B12 labs to rule out deficiencies due to Pt on intermediate frame tender TPN Monitor weight, Reweigh as possible Monitor electrolytes, Replenish electrolytes as protocol Monitor goals of care RD to follow + available for consult per protocol Dietetic Student, Cris Bejarano Addendum: 08/24/24 at [address] Amended: Links added.
[2024-08-24] MEDS: fluCONazole 200 MG/NS 100 ML IV SCH (15:57)
--- NOTE | 2024-08-24 19:44 | PN ---
[facility] PROGRESS NOTE Date Patient Seen: Aug 24, 2024 Time of Visit: 1236 Supervising Physician: Dr. Mehta Primary Care Physician: CHRISTEN JORGE MD (PCP) Outpatient Specialists: Inpatient Consults: Dr. 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, POA, Left ejection fraction 55-60% with no evidence of vegetation per echocardiogram 08/23/2024 Chronic NPO status , on TPN at home Intractable Nausea and vomiting, POA, resolved Electrolyte derangement (hyponatremia, hypochloremia) Hyperglycemia without history of diabetes mellitus Chronic problem list: multiple abdominal surgeries, gastric fistula s/p TPN for the past year, established colostomy, Betlem muscular dystrophy, wheelchair- bound, and tachycardic INTERVAL HISTORY: Patient was seen and examined today by me, the patient was lying in bed, weak, deconditioned, She has been with low-grade fevers of 99.1 overnight, intermittent tachycardia that has improved since admission on antibiotic therapy of vancomycin cefepime and Flagyl. CBC reveals hemodilution, potassium of 3.0, sodium 134. BUN 10 creatinine of 0.2. At this time we will go ahead and remove the patient's right upper chest line, ID was consulted and we will continue on IV antibiotic therapy. Regarding her nutrition the patient will be placed on peripheral parenteral nutrition. Dr. gonzales has evaluated, pending recs 08/24 patient was seen and examined by bedside with family present. Patient is awake alert able to answer simple questions appropriately. Patient's labs this a.m. unremarkable. Patient denies any chest pain or shortness of breadth. Patient denies any nausea vomiting or abdominal pain. The patient continues with TPN. Patient to continue on IV antibiotics per ID recommendations. At this time we will repeat patient's blood cultures. As per General surgery no surgical indication at this time patient will need to follow up with her surgeons in [place]. At this time we will consult Wound Care for eval and treat meant to abdominal wound. Appreciate assistance REVIEW OF SYSTEMS: 12 point ROS reviewed with patient. Pertinent positives mentioned above. Otherwise negative. PHYSICAL EXAM: GENERAL: Alert, weak, awake oriented x 3 HEENT: EOMI, Sclera non icteric, moist mucosa NECK: Supple, no JVD, trachea midline LUNGS: Clear breath sounds bilaterally. No wheezes HEART: Regular rate and rhythm. Normal S1 and S2, without murmurs ABD: Well-healed vertical abdominal incision. Upper abdominal skin has large amount of excoriation from clear fluid draining on the abdominal skin. Notable large right lower abdominal hernia. Abdomen soft, generalized abdominal tenderness. Bowel sounds hypoactive. EXT: No clubbing cyanosis or edema. Right hand contractures. NEURO: Alert and oriented X3, follows commands, Vital Signs (last 8hr) Date Time Temp Pulse Resp B/P (MAP) Pulse Ox O2 Delivery O2 Flow Rate FiO2 08/24/24 18:38 88 20 08/24/24 18:38 88 20 N/A Room Air 21 08/24/24 16:00 98.1 157 17 157/85 85 Room Air LABS: Hematology Labs: Test 08/24/24 05:21 Range/Units White Blood Count 4.7 L 4.8-10.8 K/uL Red Blood Count 3.94 L 4.00-5.50 MIL/uL Hemoglobin 10.6 L 12.0-16.0 g/dL Hematocrit 32.9 L 36-48 % Mean Corpuscular Volume 83.5 79-99 fL Mean Corpuscular Hemoglobin 26.9 L 27.0-33.0 pg Mean Corpuscular Hemoglobin Concent 32.2 32.0-36.0 g/dL Red Cell Distribution Width 16.8 H 11.0-15.5 % Platelet Count 137 130-400 K/uL Mean Platelet Volume 10.2 7.5-10.5 fL Immature Granulocyte % (Auto) 0.4 0-1 % Neutrophils (%) (Auto) 58.2 40.0-77.0 % Lymphocytes (%) (Auto) 30.4 21.0-51.0 % Monocytes (%) (Auto) 9.3 3.0-13.0 % Eosinophils (%) (Auto) 1.3 0.0-8.0 % Basophils (%) (Auto) 0.4 0.0-5.0 % Neutrophils # (Auto) 2.8 1.8-7.7 K/uL Lymphocytes # (Auto) 1.4 1.0-4.8 K/uL Monocytes # (Auto) 0.4 0.1-1.0 K/uL Eosinophils # (Auto) 0.06 0.00-0.70 K/uL Basophils # (Auto) 0.02 0.00-0.20 K/uL Absolute Immature Granulocyte (auto 0.02 0-1 K/uL Nucleated Red Blood Cells 0.0 0.0-0.19 % Chemistry Labs: Test 08/24/24 05:21 08/23/24 04:20 08/23/24 04:07 Range/Units Sodium Level 139 136-145 mmol/L Potassium Level 4.1 3.5-5.1 mmol/L Chloride Level 105 101-111 mmol/L Carbon Dioxide Level 27 21-32 mmol/L Blood Urea Nitrogen 17 7-18 mg/dL Creatinine 0.2 L 0.5-1.0 mg/dL Glomerular Filtration Rate Calc 137 >90 mL/min Random Glucose 126 H 70-105 mg/dL Total Calcium 7.8 L 8.5-10.1 mg/dL Magnesium Level 2.10 1.80-2.40 mg/dL Total Bilirubin 0.4 0.2-1.0 mg/dL Aspartate Amino Transf (AST/SGOT) 30 10-37 U/L Alanine Aminotransferase (ALT/SGPT) 47 12-78 U/L Alkaline Phosphatase 134 50-136 U/L Total Protein 6.5 6.0-8.3 g/dL Albumin 2.5 L 3.5-5.0 g/dL Triglycerides Level 70 30-200 mg/dL Cholesterol Level 106 <200 mg/dL LDL Cholesterol 66 0-99 mg/dL HDL Cholesterol 27 L 35-85 mg/dL Vitamin B12 Level 1234 H 193-986 pg/mL Folic Acid (LAB) 17.40 2-20 ng/mL Procalcitonin 1.27 H 0.05-0.5 ng/mL Direct Bilirubin 0.1 0.0-0.3 mg/dL Thyroid Stimulating Hormone (TSH) 2.17 0.36-3.74 uIU/mL Coagulation Labs: Test 08/23/24 14:30 Range/Units Prothrombin Time 12.3 H 9.6-11.6 SEC Prothromb Time International Ratio 1.18 H 0.85-1.15 Activated Partial Thromboplast Time 31.2 26.3-35.5 SEC DIAGNOSTICS / RADIOLOGY RESULTS: na PLAN Repeat blood cultures Consult Wound Care to eval and treat abdominal wound As per General surgery no surgical indication at this time patient will need to follow up with surgeons in [place], conservative management Continue NPO for now. Continue PPN , Continue antibiotic therapy as per ID recommendations Vancomycin IV, cefepime IV, and Flagyl IV. echo eval for endocarditis, ruled out no vegetation noted P.r.n. medications for: Pain management, fever, nausea, vomiting. NEURO: Minimize central acting medications as possible. Maintain fall precautions, adequate lighting during the day PULMONARY: Supplemental 02 as needed. Maintain aspiration precautions at all times CARDIOVASCULAR: Follow hemodynamics. Vital signs per facility protocol GI & NUTRITION: Continue with nutritional support. Continue stool softeners and laxatives as needed. KIDNEYS & ELECTROLYTES: Strict monitoring of intake, output and overall fluid balance. Avoid nephrotoxic medications to the extent possible. Medications to be dosed according to renal function. Monitor electrolytes and replace as needed ENDOCRINE: Maintain blood glucose between 100-180 at all times. Hypoglycemia protocol in place INFECTIOUS DISEASE: Trend temperature, WBC and procalcitonin level Follow cultures, deescalate antibiotics as soon as possible. Panculture if new onset fever ONCOLOGY/HEMATOLOGY/COAGULATION: Monitor for s/s of bleeding Monitor hemoglobin, coagulation studies as needed SKIN: Pressure ulcer prevention per facility protocol Specialty mattress ORTHO/REHAB: Continue PT/OT Prophylaxis: Continue GI and DVT prophylaxis Code Status: Full Resuscitation Disposition: TBD Case discussed with supervising physician plan of care agreed upon KAVON MEZA Aug 24, 2024 19:44
[2024-08-24] MEDS: M.V.I. IV [ADULT] 10 ML, MULTITRACE-4 ADULT 10ML VIAL 3 ML in CLINIMIX-E4.25%AA/D5+LYT2... IV ONE (22:00)
[2024-08-24] MEDS: NYSTatin 15 GM POWDER TP SCH (22:00)
[2024-08-25] VITALS (10 sets, daily range): BP systolic 132–166; BP diastolic 74–90; PULSE 82–97; RESP 18–20; TEMP 98–99.1; O2SAT 95–97
[2024-08-25] MEDS: FAT EMULSIONS 20% 250ML 250 ML IV SCH (09:05)
--- NOTE | 2024-08-25 12:45 | NUR ---
[facility] Follow-up: Patient re-assessed by wound healing team. Assessment and recommendations provided to primary nurse. Education provided. Duoderm and ostomy pouch applied to fistula. Addendum: 08/25/24 at 1444 by RADHA DE OLIVEIRA RN RN/ Amended: Links added.
--- NOTE | 2024-08-25 13:22 | NUR ---
Notes Met with pt. Pt reports last BM 08/25/2024, visits with PCP every 3 months, weekly labs drawn and is told she is stable. Pt still doesnt recall Clinimix mixture and rate but described the color of the bag as white and says it has lipids. Informed the pt her lipid panel and folic acid came back WNL and is pending further lab testing to insure she is not deficient. Asked pt to take a picture of the bag and rate when she can, pt agreed and would get it by tomorrow. Pending zinc, copper, selenium, manganese, vit. A, D, E, B1, B12 labs to rule out deficiencies due to Pt on meterman TPN Recommendation Continue PPN Monitor weight, reweigh as possible Monitor electrolytes, replenish electrolytes as protocol Monitor goals of care RD to follow + available for consult per protocol Dietetic Student, Cris Bejarano Addendum: 08/25/24 at [address] Amended: Links added.
--- NOTE | 2024-08-25 14:43 | PN ---
INFECTIOUS DISEASE PROGRESS NOTE Date of Service: Aug 25, 2024 SUBJECTIVE: This is a 58-year-old female patient who was seen and examined at bedside in room 409. Patient is awake and alert. The preliminary Mcgrath catheter tip cultures is growing Gram-positive cocci in chains, possible Enterococcus species. No fever reported this morning, temperature is 98.4. Colostomy intact. We will continue on fluconazole IV, cefepime IV and vancomycin per pharmacy protocol. No other issues reported by nursing. PHYSICAL EXAM EYES: Anicteric. Pupils equal and reactive. HENT: No oral thrush seen, moist Oral mucosa. NECK: Supple, no JVD or thyromegaly. LUNGS: Good air entry. No rales, no rhonchi. CARDIOVASCULAR: S1, S2 regular. No murmur heard. ABDOMEN: Soft, non tender, bowel sounds present, no organomegaly. Colostomy. Gastric fistula. CENTRAL NERVOUS SYSTEM: Awake, alert, oriented x 3. SKIN: No rashes, no swelling. LYMPHATICS: No peripheral lymphadenopathy MUSCULOSKELETAL: No joint swelling, erythema or tenderness. EXTREMITIES: No cyanosis or clubbing. BACK: No deformity, no pressure ulcer. GENITOURINARY: No dysuria or hematuria. Vital Sign (Last 12 Hours) 08/25/24 08/25/24 08/25/24 08/25/24 03:41 06:27 08:01 12:06 Temp 99.1 98.1 98.4 Pulse 84 89 90 97 Resp 18 20 19 19 B/P (MAP) 153/79 164/74 155/83 Pulse Ox 98 97 97 O2 Delivery Room Air N/A Room Air Room Air Room Air FiO2 21 21 Intake & Output (last 24hrs) 08/24/24 08/24/24 08/25/24 15:00 23:00 07:00 Intake Total 250.0 ml Output Total 700 ml Balance -700 ml 250.0 ml LABS: Laboratory: Test 08/25/24 05:18 08/24/24 05:21 Range/Units Vancomycin Level Trough 15.4 10.0-20.0 UG/ML White Blood Count 4.7 L 4.8-10.8 K/uL Red Blood Count 3.94 L 4.00-5.50 MIL/uL Hemoglobin 10.6 L 12.0-16.0 g/dL Hematocrit 32.9 L 36-48 % Mean Corpuscular Volume 83.5 79-99 fL Mean Corpuscular Hemoglobin 26.9 L 27.0-33.0 pg Mean Corpuscular Hemoglobin Concent 32.2 32.0-36.0 g/dL Red Cell Distribution Width 16.8 H 11.0-15.5 % Platelet Count 137 130-400 K/uL Mean Platelet Volume 10.2 7.5-10.5 fL Immature Granulocyte % (Auto) 0.4 0-1 % Neutrophils (%) (Auto) 58.2 40.0-77.0 % Lymphocytes (%) (Auto) 30.4 21.0-51.0 % Monocytes (%) (Auto) 9.3 3.0-13.0 % Eosinophils (%) (Auto) 1.3 0.0-8.0 % Basophils (%) (Auto) 0.4 0.0-5.0 % Neutrophils # (Auto) 2.8 1.8-7.7 K/uL Lymphocytes # (Auto) 1.4 1.0-4.8 K/uL Monocytes # (Auto) 0.4 0.1-1.0 K/uL Eosinophils # (Auto) 0.06 0.00-0.70 K/uL Basophils # (Auto) 0.02 0.00-0.20 K/uL Absolute Immature Granulocyte (auto 0.02 0-1 K/uL Nucleated Red Blood Cells 0.0 0.0-0.19 % Sodium Level 139 136-145 mmol/L Potassium Level 4.1 3.5-5.1 mmol/L Chloride Level 105 101-111 mmol/L Carbon Dioxide Level 27 21-32 mmol/L Blood Urea Nitrogen 17 7-18 mg/dL Creatinine 0.2 L 0.5-1.0 mg/dL Glomerular Filtration Rate Calc 137 >90 mL/min Random Glucose 126 H 70-105 mg/dL Total Calcium 7.8 L 8.5-10.1 mg/dL Magnesium Level 2.10 1.80-2.40 mg/dL Total Bilirubin 0.4 0.2-1.0 mg/dL Aspartate Amino Transf (AST/SGOT) 30 10-37 U/L Alanine Aminotransferase (ALT/SGPT) 47 12-78 U/L Alkaline Phosphatase 134 50-136 U/L Total Protein 6.5 6.0-8.3 g/dL Albumin 2.5 L 3.5-5.0 g/dL Triglycerides Level 70 30-200 mg/dL Cholesterol Level 106 <200 mg/dL LDL Cholesterol 66 0-99 mg/dL HDL Cholesterol 27 L 35-85 mg/dL Vitamin B12 Level 1234 H 193-986 pg/mL Folic Acid (LAB) 17.40 2-20 ng/mL DIAGNOSTICS/RADIOLOGY PATIENT: ABENA ANTONY ACCT: [id number] LOC: [facility] U: [id number] AGE/SX: 58/F ROOM: [facility] RE08/22/[address]: AFUA TORREZ MD : 1965 BED: 1 DIS: STATUS: ADM IN TLOC: SPEC: [id number] VINNY: 08/23/24-1600 STATUS: RES REQ: [id number] RECD: 08/23/24-[address]: CURTIS GILMAN DO SOURCE: CATH TIP ENTR: 08/23/24-[address]: JACQUELINE GEORGE MD SPDESC: VENUS BRUNO MD, STEPHANIE H MD MADI, JAMIL M MD ORDERED: OLIVIER CULTURE, AEROBIC CULTURE COMMENTS: Has specimen been collected/obtained? Y Specimen Comment: MCGRATH CATHETER TIP Has specimen been collected/obtained? Y Specimen Comment: MCGRATH CATHETER TIP Has specimen been collected/obtained? Y Specimen Comment: MCGRATH CATHETER TIP Has specimen been collected/obtained? Y Specimen Comment: MCGRATH CATHETER TIP Has specimen been collected/obtained? Y Specimen Comment: MCGRATH CATHETER TIP Procedure Result Carlos Date-Time ANAEROBIC CULTURE Preliminary 08/25/24 [facility] DESCRIPTION: REPORT 1: NO ANAEROBES AT 24-35 HOURS; STUDIES TO CONTINUE Test(s) performed by: [facility] [address] [place] [address] AEROBIC CULTURE Preliminary 08/25/24 [facility] DESCRIPTION: REPORT 1: COLONY COUNT: 15-100 COLONIES GRAM POSITIVE COCCI IN CHAINS POSSIBLE ENTEROCOCCUS SPECIES IDENTIFICATION AND SENSITIVITY TO FOLLOW ASSESSMENT: Enterococcus faecalis bacteremia. 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 Sepsis, status post removal of Mcgrath catheter. Urinary tract infection. History of muscular dystrophy. Bed-bound status. PLAN: Continue fluconazole IV. Continue vancomycin per pharmacy protocol. Continue cefepime IV We will follow up on the repeat blood cultures and the Mcgrath catheter tip cu lture results. We will monitor electrolytes. This case was reviewed and discussed with my supervising physician and the above assessment and plan was formulated and agreed upon. ATTESTATION BY PHYSICIAN I have seen and examined the patient. I reviewed the documentation, medical decision making, and treatment plan as noted by the mid-level provider above. I agree with the findings and plan of care. JACQUELINE GEORGE MD, MIRTA L FNP Aug 25, 2024 14:43
--- NOTE | 2024-08-25 15:54 | PN ---
[facility] PROGRESS NOTE Date Patient Seen: Aug 25, 2024 Time of Visit: 1214 Supervising Physician: Dr. TORREZ Primary Care Physician: CHRISTEN JORGE MD (PCP) Outpatient Specialists: Inpatient Consults: Dr. 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, POA, Left ejection fraction 55-60% with no evidence of vegetation per echocardiogram 08/23/2024 Chronic NPO status , on TPN at home Intractable Nausea and vomiting, POA, resolved Electrolyte derangement (hyponatremia, hypochloremia) Hyperglycemia without history of diabetes mellitus Chronic problem list: multiple abdominal surgeries, gastric fistula s/p TPN for the past year, established colostomy, Betlem muscular dystrophy, wheelchair- bound, and tachycardic INTERVAL HISTORY: Patient was seen and examined today by me, the patient was lying in bed, weak, deconditioned, She has been with low-grade fevers of 99.1 overnight, intermittent tachycardia that has improved since admission on antibiotic therapy of vancomycin cefepime and Flagyl. CBC reveals hemodilution, potassium of 3.0, sodium 134. BUN 10 creatinine of 0.2. At this time we will go ahead and remove the patient's right upper chest line, ID was consulted and we will continue on IV antibiotic therapy. Regarding her nutrition the patient will be placed on peripheral parenteral nutrition. Dr. gonzales has evaluated, pending recs 08/24 patient was seen and examined by bedside with family present. Patient is awake alert able to answer simple questions appropriately. Patient's labs this a.m. unremarkable. Patient denies any chest pain or shortness of breadth. Patient denies any nausea vomiting or abdominal pain. The patient continues with TPN. Patient to continue on IV antibiotics per ID recommendations. At this time we will repeat patient's blood cultures. As per General surgery no surgical indication at this time patient will need to follow up with her surgeons in [place]. At this time we will consult Wound Care for eval and treat meant to abdominal wound. Appreciate assistance 08/25 patient was seen examined by bedside with family present. Patient is awake alert able to answer simple questions appropriately. Patient's repeat blood cultures pending. Patient at time of visit denies chest pain or shortness of breadth. Denies nausea vomiting or abdominal pain. We will continue with IV antibiotics per ID recommendations. Plan is for possible LTAC. REVIEW OF SYSTEMS: 12 point ROS reviewed with patient. Pertinent positives mentioned above. Otherwise negative. PHYSICAL EXAM: GENERAL: Alert, weak, awake oriented x 3 HEENT: EOMI, Sclera non icteric, moist mucosa NECK: Supple, no JVD, trachea midline LUNGS: Clear breath sounds bilaterally. No wheezes HEART: Regular rate and rhythm. Normal S1 and S2, without murmurs ABD: Well-healed vertical abdominal incision. Upper abdominal skin has large amount of excoriation from clear fluid draining on the abdominal skin. Notable large right lower abdominal hernia. Abdomen soft, generalized abdominal tenderness. Bowel sounds hypoactive. EXT: No clubbing cyanosis or edema. Right hand contractures. NEURO: Alert and oriented X3, follows commands, Vital Signs (last 8hr) Date Time Temp Pulse Resp B/P (MAP) Pulse Ox O2 Delivery O2 Flow Rate FiO2 08/25/24 12:06 98.4 97 19 155/83 97 Room Air 08/25/24 08:01 98.1 90 19 164/74 97 Room Air LABS: Hematology Labs: Test 08/24/24 05:21 Range/Units White Blood Count 4.7 L 4.8-10.8 K/uL Red Blood Count 3.94 L 4.00-5.50 MIL/uL Hemoglobin 10.6 L 12.0-16.0 g/dL Hematocrit 32.9 L 36-48 % Mean Corpuscular Volume 83.5 79-99 fL Mean Corpuscular Hemoglobin 26.9 L 27.0-33.0 pg Mean Corpuscular Hemoglobin Concent 32.2 32.0-36.0 g/dL Red Cell Distribution Width 16.8 H 11.0-15.5 % Platelet Count 137 130-400 K/uL Mean Platelet Volume 10.2 7.5-10.5 fL Immature Granulocyte % (Auto) 0.4 0-1 % Neutrophils (%) (Auto) 58.2 40.0-77.0 % Lymphocytes (%) (Auto) 30.4 21.0-51.0 % Monocytes (%) (Auto) 9.3 3.0-13.0 % Eosinophils (%) (Auto) 1.3 0.0-8.0 % Basophils (%) (Auto) 0.4 0.0-5.0 % Neutrophils # (Auto) 2.8 1.8-7.7 K/uL Lymphocytes # (Auto) 1.4 1.0-4.8 K/uL Monocytes # (Auto) 0.4 0.1-1.0 K/uL Eosinophils # (Auto) 0.06 0.00-0.70 K/uL Basophils # (Auto) 0.02 0.00-0.20 K/uL Absolute Immature Granulocyte (auto 0.02 0-1 K/uL Nucleated Red Blood Cells 0.0 0.0-0.19 % Chemistry Labs: Test 08/24/24 20:06 08/24/24 05:21 Range/Units Vitamin D 25-Hydroxy 29.8 30.0-100.0 ng/mL Sodium Level 139 136-145 mmol/L Potassium Level 4.1 3.5-5.1 mmol/L Chloride Level 105 101-111 mmol/L Carbon Dioxide Level 27 21-32 mmol/L Blood Urea Nitrogen 17 7-18 mg/dL Creatinine 0.2 L 0.5-1.0 mg/dL Glomerular Filtration Rate Calc 137 >90 mL/min Random Glucose 126 H 70-105 mg/dL Total Calcium 7.8 L 8.5-10.1 mg/dL Magnesium Level 2.10 1.80-2.40 mg/dL Total Bilirubin 0.4 0.2-1.0 mg/dL Aspartate Amino Transf (AST/SGOT) 30 10-37 U/L Alanine Aminotransferase (ALT/SGPT) 47 12-78 U/L Alkaline Phosphatase 134 50-136 U/L Total Protein 6.5 6.0-8.3 g/dL Albumin 2.5 L 3.5-5.0 g/dL Triglycerides Level 70 30-200 mg/dL Cholesterol Level 106 <200 mg/dL LDL Cholesterol 66 0-99 mg/dL HDL Cholesterol 27 L 35-85 mg/dL Vitamin B12 Level 1234 H 193-986 pg/mL Folic Acid (LAB) 17.40 2-20 ng/mL DIAGNOSTICS / RADIOLOGY RESULTS: na PLAN Repeat blood cultures Consult Wound Care to eval and treat abdominal wound As per General surgery no surgical indication at this time patient will need to follow up with surgeons in [place], conservative management Continue NPO for now. Continue PPN , Continue antibiotic therapy as per ID recommendations Vancomycin IV, cefepime IV, and Flagyl IV. echo eval for endocarditis, ruled out no vegetation noted P.r.n. medications for: Pain management, fever, nausea, vomiting. NEURO: Minimize central acting medications as possible. Maintain fall precautions, adequate lighting during the day PULMONARY: Supplemental 02 as needed. Maintain aspiration precautions at all times CARDIOVASCULAR: Follow hemodynamics. Vital signs per facility protocol GI & NUTRITION: Continue with nutritional support. Continue stool softeners and laxatives as needed. KIDNEYS & ELECTROLYTES: Strict monitoring of intake, output and overall fluid balance. Avoid nephrotoxic medications to the extent possible. Medications to be dosed according to renal function. Monitor electrolytes and replace as needed ENDOCRINE: Maintain blood glucose between 100-180 at all times. Hypoglycemia protocol in place INFECTIOUS DISEASE: Trend temperature, WBC and procalcitonin level Follow cultures, deescalate antibiotics as soon as possible. Panculture if new onset fever ONCOLOGY/HEMATOLOGY/COAGULATION: Monitor for s/s of bleeding Monitor hemoglobin, coagulation studies as needed SKIN: Pressure ulcer prevention per facility protocol Specialty mattress ORTHO/REHAB: Continue PT/OT Prophylaxis: Continue GI and DVT prophylaxis Code Status: Full Resuscitation Disposition: TBD Case discussed with supervising physician plan of care agreed upon KAVON MEZA Aug 25, 2024 15:54
[2024-08-25] MEDS: ceFEPime HCL 1 GM VIAL IVPB SCH (20:40)
[2024-08-25] MEDS: M.V.I. IV [ADULT] 10 ML, MULTITRACE-4 ADULT 10ML VIAL 3 ML in CLINIMIX-E4.25%AA/D5+LYT2... IV ONE (21:26)
[2024-08-26] VITALS (9 sets, daily range): BP systolic 112–135; BP diastolic 66–84; PULSE 75–101; RESP 16–20; TEMP 97.4–98; O2SAT 96–97
--- NOTE | 2024-08-26 11:00 | NUR ---
dressing anterior abd removed applied nystain powder setting powder duoderm dressing applied 4x4 and tegaderm
[2024-08-26 11:54] LABS: HEMATOCRIT 35.6 % (36-48); MEAN CORPUSCULAR HEMOGLOBIN 26.6 pg (27.0-33.0); MEAN CORPUSCULAR HGB CONC 32.3 g/dL (32.0-36.0); MEAN CORPUSCULAR VOLUME 82.2 fL (79-99); RED BLOOD CELL COUNT(AUTO) 4.33 MIL/uL (4.00-5.50); RED CELL DISTRIBUTION WIDTH 16.8 % (11.0-15.5); WHITE BLOOD COUNT (AUTO) 6.1 K/uL (4.8-10.8)
[2024-08-26 12:10] LABS: ALBUMIN 2.8 g/dL (3.5-5.0); BILIRUBIN,TOTAL 0.4 mg/dL (0.2-1.0); CREATININE 0.2 mg/dL (0.5-1.0); POTASSIUM 4.2 mmol/L (3.5-5.1); TOTAL PROTEIN, SERUM 7.1 g/dL (6.0-8.3)
--- NOTE | 2024-08-26 13:33 | NUR ---
Notes Met with pt. Pt reports still not having a picture of the Clinimix she uses at home, states shell get her to take a picture for the last 2 days, and does not recall the rate, pt has been on TPN for 1 year. Pending zinc, copper, selenium, manganese, vit. A, E, B1 labs to rule out deficiencies due to Pt on prison TPN GIR 1.1 mg/kg/min RD to follow for rate and Clinimix prescription for at home use Recommendation Continue PPN @ 83.333 ml/hr Provide Vit D per pt deficiencies Monitor weight, reweigh as possible Monitor electrolytes, replenish electrolytes as protocol Monitor goals of care RD to follow + available for consult per protocol Dietetic Student, Cris Bejarano Addendum: 08/26/24 at [address] Amended: Links added.
--- NOTE | 2024-08-26 14:57 | NUR ---
[facility]e Follow-up This CM called [facility] at [phone], opt: # 2, #1, #1, #2 and requested update on auth request for [facility]. Per [facility] rep, the auth request is recommended for denial and either a peer to peer can be done or updated clinicals. This CM updated attending. Per the attending, [facility] can do peer to peer. This CM notified Flory Louis with [facility] who will set up peer to peer with [facility] and Dr. Eason. KENJI Hoff notified Dr. Eason of peer to peer need. Addendum: 08/26/24 at 1504 by LETY MEDLEY Amended: Links added.
--- NOTE | 2024-08-26 15:13 | PN ---
INFECTIOUS DISEASE PROGRESS NOTE Date of Service: Aug 26, 2024 SUBJECTIVE: This is a 58-year-old female patient who was seen and examined at bedside in room 409. Patient is awake, alert and oriented. The final culture results from the tip of the Mcgrath catheter came back positive for Enterococcus faecalis, Staphylococcus epidermidis and Kaylyn parapsilosis. Patient was updated with these findings. Family members visiting at bedside. We will continue on fluconazole IV, cefepime IV and vancomycin per pharmacy protocol. No fever reported this morning, temperature is 98.1. No episodes of nausea or vomiting. We will continue to follow patient's care. PHYSICAL EXAM EYES: Anicteric. Pupils equal and reactive. HENT: No oral thrush seen, moist Oral mucosa. NECK: Supple, no JVD or thyromegaly. LUNGS: Good air entry. No rales, no rhonchi. CARDIOVASCULAR: S1, S2 regular. No murmur heard. ABDOMEN: Soft, non tender, bowel sounds present, no organomegaly. Colostomy. Gastric fistula. CENTRAL NERVOUS SYSTEM: Awake, alert, oriented x 3. SKIN: No rashes, no swelling. LYMPHATICS: No peripheral lymphadenopathy MUSCULOSKELETAL: No joint swelling, erythema or tenderness. EXTREMITIES: No cyanosis or clubbing. BACK: No deformity, no pressure ulcer. GENITOURINARY: No dysuria or hematuria. Vital Sign (Last 12 Hours) 08/26/24 08/26/24 08/26/24 08/26/24 04:00 06:41 08:00 09:30 Temp 98.1 98.1 Pulse 101 94 83 Resp 17 20 18 B/P (MAP) 112/73 124/76 Pulse Ox 96 97 97 O2 Delivery Room Air N/A Room Air Room Air Room Air* O2 Flow Rate 0 FiO2 21 21 08/26/24 12:11 Temp 98.1 Pulse 96 Resp 18 B/P (MAP) 116/78 Pulse Ox 96 O2 Delivery Room Air Intake & Output (last 24hrs) 08/25/24 08/25/24 08/26/24 14:59 22:59 06:59 Intake Total 0 ml 0 ml Balance 0 ml 0 ml LABS: Laboratory: Test 08/26/24 11:36 08/25/24 05:18 08/24/24 20:06 Range/Units White Blood Count 6.1 4.8-10.8 K/uL Red Blood Count 4.33 4.00-5.50 MIL/uL Hemoglobin 11.5 L 12.0-16.0 g/dL Hematocrit 35.6 L 36-48 % Mean Corpuscular Volume 82.2 79-99 fL Mean Corpuscular Hemoglobin 26.6 L 27.0-33.0 pg Mean Corpuscular Hemoglobin Concent 32.3 32.0-36.0 g/dL Red Cell Distribution Width 16.8 H 11.0-15.5 % Platelet Count 215 # 130-400 K/uL Mean Platelet Volume 10.1 7.5-10.5 fL Nucleated Red Blood Cells 0.0 0.0-0.19 % Sodium Level 138 136-145 mmol/L Potassium Level 4.2 3.5-5.1 mmol/L Chloride Level 103 101-111 mmol/L Carbon Dioxide Level 29 21-32 mmol/L Blood Urea Nitrogen 16 7-18 mg/dL Creatinine 0.2 L 0.5-1.0 mg/dL Glomerular Filtration Rate Calc 137 >90 mL/min Random Glucose 136 H 70-105 mg/dL Total Calcium 8.7 8.5-10.1 mg/dL Total Bilirubin 0.4 0.2-1.0 mg/dL Aspartate Amino Transf (AST/SGOT) 35 10-37 U/L Alanine Aminotransferase (ALT/SGPT) 47 12-78 U/L Alkaline Phosphatase 150 H 50-136 U/L Total Protein 7.1 6.0-8.3 g/dL Albumin 2.8 L 3.5-5.0 g/dL Vancomycin Level Trough 15.4 10.0-20.0 UG/ML Serum Copper . ug/dL Plasma Zinc Level . ug/dL Vitamin D 25-Hydroxy 29.8 30.0-100.0 ng/mL DIAGNOSTICS/RADIOLOGY PATIENT: ABENA ANTONY ACCT: [id number] LOC: [facility] U: [id number] AGE/SX: 58/F ROOM: 409 RE08/22/[address]: AFUA TORREZ MD : [id number] BED: 1 DIS: STATUS: ADM IN TLOC: SPEC: [id number] VINNY: 08/23/24 STATUS: RES REQ: [id number] RECD: 08/23/24 [facility] DR: CURTIS GILMAN DO SOURCE: CATH TIP ENTR: 08/23/24-[address]: JACQUELINE GEORGE MD SPDESC: OTHER VENUS SAMANIEGO MD,CHRISTEN TORREZ,AFUA Akins MD ORDERED: OLIVIER CULTURE, AEROBIC CULTURE COMMENTS: Has specimen been collected/obtained? Y Specimen Comment: MCGRATH CATHETER TIP Has specimen been collected/obtained? Y Specimen Comment: MCGRATH CATHETER TIP Has specimen been collected/obtained? Y Specimen Comment: MCGRATH CATHETER TIP Has specimen been collected/obtained? Y Specimen Comment: MCGRATH CATHETER TIP Has specimen been collected/obtained? Y Specimen Comment: MCGARTH CATHETER TIP Has specimen been collected/obtained? Y Specimen Comment: MCGRATH CATHETER TIP Has specimen been collected/obtained? Y Specimen Comment: MCGRATH CATHETER TIP Has specimen been collected/obtained? Y Specimen Comment: MCGRATH CATHETER TIP Has specimen been collected/obtained? Y Specimen Comment: MCGRATH CATHETER TIP Has specimen been collected/obtained? Y Specimen Comment: MCGRATH CATHETER TIP Has specimen been collected/obtained? Y Specimen Comment: MCGRATH CATHETER TIP Has specimen been collected/obtained? Y Specimen Comment: MCGRATH CATHETER TIP Has specimen been collected/obtained? Y Specimen Comment: MCGRATH CATHETER TIP Procedure Result Carlos Date-Time ANAEROBIC CULTURE Preliminary 08/26/24-0754 MRL COLONY DESCRIPTION: REPORT 1: NO ANAEROBES AT 24-35 HOURS; STUDIES TO CONTINUE REPORT 2: NO ANAEROBES AT 48-59 HOURS; STUDIES TO CONTINUE Test(s) performed by: [address] [place] [address] RUN DATE: 08/26/[address] [facility] PAGE 2 RUN TIME: [address] [address], [place] [address] Department of [employer] CLIA # [id number] Erp Implementation Consultant: Javan Cm DO Specimen Report SPEC: [id number] PATIENT: ABENA ANTONY [id number] (Continued) Procedure Result Carlos Date-Time CONTINUED ON NEXT PAGE RUN DATE: 08/26/[address] [facility] PAGE 3 RUN TIME: [address] [address] Department of Laboratories CLIA # [id number] Erp Implementation Consultant: Javan Cm DO Specimen Report SPEC: [id number] PATIENT: ABENA ANTONY [id number] (Continued) Procedure Result Carlos Date-Time AEROBIC CULTURE Final 08/26/24-0754 MRL COLONY DESCRIPTION: REPORT 1: COLONY COUNT: 15-100 COLONIES GRAM POSITIVE COCCI IN CHAINS POSSIBLE ENTEROCOCCUS SPECIES IDENTIFICATION AND SENSITIVITY TO FOLLOW REPORT 2: COLONY COUNT: 15-100 COLONIES YEAST SPECIES; NOT KAYLYN ALBICANS COLONY COUNT: 15-100 COLONIES COAGULASE NEGATIVE STAPHYLOCOCCUS . IDENTIFICATION AND SENSITIVITY TO FOLLOW NO FURTHER WORK-UP DONE ENTEROCOCCUS FAECALIS STAPHYLOCOCCUS EPIDERMIDIS KAYLYN PARAPSILOSIS E FAECALIS STA EPIDER M.I.C. RX M.I.C. RX --------- ---- --------- ---- AMPICILLIN <=2 S CLINDAMYCIN <=0.25 S ERYTHROMYCIN >4 R GENTAMICIN >8 R VANCOMYCIN 1 S 1 S OXACILLIN MIYA >2 R RIFAMPIN <=1 S TETRACYCLINE <=4 S GENTAMICIN Synergy Screen <=500 S PENICILLIN 2 S TRIMETHOPRIM/SUFLAMETHOXAZOLE 2/38 S ENTEROCOCCUS FAECALIS: POSITIVE COMBO 34 Gentamicin Synergy Screen S ASSESSMENT: Enterococcus faecalis bacteremia. 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 Sepsis, status post removal of Mcgrath catheter. Polymicrobic infection with Enterococcus faecalis, Staphylococcus epidermidis and Kaylyn parapsilosis. Urinary tract infection. History of muscular dystrophy. Bed-bound status. PLAN: Continue fluconazole IV. Continue vancomycin per pharmacy protocol. Continue cefepime IV We will follow up on the repeat blood cultures and the Mcgrath catheter tip culture results. We will monitor electrolytes. This case was reviewed and discussed with my supervising physician and the above assessment and plan was formulated and agreed upon. ATTESTATION BY PHYSICIAN I have seen and examined the patient. I reviewed the documentation, medical decision making, and treatment plan as noted by the mid-level provider above. I agree with the findings and plan of care. JACQUELINE GEORGE MD, MIRTA L FNP Aug 26, 2024 15:13
--- NOTE | 2024-08-26 15:16 | PN ---
[facility] PROGRESS NOTE Date Patient Seen: Aug 26, 2024 Time of Visit: 1154 Supervising Physician: Dr. Starkey Primary Care Physician: CHRISTEN JORGE MD (PCP) Outpatient Specialists: Inpatient Consults: Dr. Dayana Gonzales, general surgeon PROBLEM LIST: Severe sepsis, without septic shock, POA, Gram + cocci in blood cultures on 08/22/24 positive for Enterococcus , from RU chest wall line Acute candidemia Acute complicated cystitis, POA Gastric fistula, recurrent and acute on chronic, POA, Left ejection fraction 55-60% with no evidence of vegetation per echocardiogram 08/23/2024 Chronic NPO status , on TPN at home Intractable Nausea and vomiting, POA, resolved Electrolyte derangement (hyponatremia, hypochloremia) Hyperglycemia without history of diabetes mellitus Chronic problem list: multiple abdominal surgeries, gastric fistula s/p TPN for the past year, established colostomy, Betlem muscular dystrophy, wheelchair- bound, and tachycardic INTERVAL HISTORY: Patient was seen and examined today by me, the patient was lying in bed, weak, deconditioned, She has been with low-grade fevers of 99.1 overnight, intermittent tachycardia that has improved since admission on antibiotic therapy of vancomycin cefepime and Flagyl. CBC reveals hemodilution, potassium of 3.0, sodium 134. BUN 10 creatinine of 0.2. At this time we will go ahead and remove the patient's right upper chest line, ID was consulted and we will continue on IV antibiotic therapy. Regarding her nutrition the patient will be placed on peripheral parenteral nutrition. Dr. gonzales has evaluated, pending recs 08/24 patient was seen and examined by bedside with family present. Patient is awake alert able to answer simple questions appropriately. Patient's labs this a.m. unremarkable. Patient denies any chest pain or shortness of breadth. Patient denies any nausea vomiting or abdominal pain. The patient continues with TPN. Patient to continue on IV antibiotics per ID recommendations. At this time we will repeat patient's blood cultures. As per General surgery no surgical indication at this time patient will need to follow up with her surgeons in [place]. At this time we will consult Wound Care for eval and treat meant to abdominal wound. Appreciate assistance 08/25 patient was seen examined by bedside with family present. Patient is awake alert able to answer simple questions appropriately. Patient's repeat blood cultures pending. Patient at time of visit denies chest pain or shortness of breadth. Denies nausea vomiting or abdominal pain. We will continue with IV antibiotics per ID recommendations. Plan is for possible LTAC. 08/26 patient was seen and examined by bedside with family present. Patient is awake alert able to answer simple questions appropriately. Patient's catheter tip came back positive for Enterococcus Staphylococcus and Kaylyn, this time we will continue with vancomycin cefepime and fluconazole per ID recommendations. Case management to work on LTAC placement. At time of visit patient has no specific complaints. Has remained hemodynamically stable. No temperatures have been reported. Repeat blood cultures have been negative times 24 hours. REVIEW OF SYSTEMS: 12 point ROS reviewed with patient. Pertinent positives mentioned above. Otherwise negative. PHYSICAL EXAM: GENERAL: Alert, weak, awake oriented x 3 HEENT: EOMI, Sclera non icteric, moist mucosa NECK: Supple, no JVD, trachea midline LUNGS: Clear breath sounds bilaterally. No wheezes HEART: Regular rate and rhythm. Normal S1 and S2, without murmurs ABD: Well-healed vertical abdominal incision. Upper abdominal skin has large amount of excoriation from clear fluid draining on the abdominal skin. Notable large right lower abdominal hernia. Abdomen soft, generalized abdominal tenderness. Bowel sounds hypoactive. EXT: No clubbing cyanosis or edema. Right hand contractures. NEURO: Alert and oriented X3, follows commands, Vital Signs (last 8hr) Date Time Temp Pulse Resp B/P (MAP) Pulse Ox O2 Delivery O2 Flow Rate FiO2 08/26/24 12:11 98.1 96 18 116/78 96 Room Air 08/26/24 09:30 97 Room Air* 0 21 08/26/24 08:00 98.1 83 18 124/76 97 Room Air LABS: Hematology Labs: Test 08/26/24 11:36 Range/Units White Blood Count 6.1 4.8-10.8 K/uL Red Blood Count 4.33 4.00-5.50 MIL/uL Hemoglobin 11.5 L 12.0-16.0 g/dL Hematocrit 35.6 L 36-48 % Mean Corpuscular Volume 82.2 79-99 fL Mean Corpuscular Hemoglobin 26.6 L 27.0-33.0 pg Mean Corpuscular Hemoglobin Concent 32.3 32.0-36.0 g/dL Red Cell Distribution Width 16.8 H 11.0-15.5 % Platelet Count 215 # 130-400 K/uL Mean Platelet Volume 10.1 7.5-10.5 fL Nucleated Red Blood Cells 0.0 0.0-0.19 % Chemistry Labs: Test 08/26/24 11:36 08/24/24 20:06 Range/Units Sodium Level 138 136-145 mmol/L Potassium Level 4.2 3.5-5.1 mmol/L Chloride Level 103 101-111 mmol/L Carbon Dioxide Level 29 21-32 mmol/L Blood Urea Nitrogen 16 7-18 mg/dL Creatinine 0.2 L 0.5-1.0 mg/dL Glomerular Filtration Rate Calc 137 >90 mL/min Random Glucose 136 H 70-105 mg/dL Total Calcium 8.7 8.5-10.1 mg/dL Total Bilirubin 0.4 0.2-1.0 mg/dL Aspartate Amino Transf (AST/SGOT) 35 10-37 U/L Alanine Aminotransferase (ALT/SGPT) 47 12-78 U/L Alkaline Phosphatase 150 H 50-136 U/L Total Protein 7.1 6.0-8.3 g/dL Albumin 2.8 L 3.5-5.0 g/dL Vitamin D 25-Hydroxy 29.8 30.0-100.0 ng/mL DIAGNOSTICS / RADIOLOGY RESULTS: na PLAN Repeat blood cultures negative times one day Continue Wound Care per wound care recommendations As per General surgery no surgical indication at this time patient will need to follow up with surgeons in [place], conservative management Continue NPO for now. Continue PPN , Continue antibiotic therapy as per ID recommendations Vancomycin IV, cefepime IV, and fluconazole IV. echo eval for endocarditis, ruled out no vegetation noted P.r.n. medications for: Pain management, fever, nausea, vomiting. NEURO: Minimize central acting medications as possible. Maintain fall precautions, adequate lighting during the day PULMONARY: Supplemental 02 as needed. Maintain aspiration precautions at all times CARDIOVASCULAR: Follow hemodynamics. Vital signs per facility protocol GI & NUTRITION: Continue with nutritional support. Continue stool softeners and laxatives as needed. KIDNEYS & ELECTROLYTES: Strict monitoring of intake, output and overall fluid balance. Avoid nephrotoxic medications to the extent possible. Medications to be dosed according to renal function. Monitor electrolytes and replace as needed ENDOCRINE: Maintain blood glucose between 100-180 at all times. Hypoglycemia protocol in place INFECTIOUS DISEASE: Trend temperature, WBC and procalcitonin level Follow cultures, deescalate antibiotics as soon as possible. Panculture if new onset fever ONCOLOGY/HEMATOLOGY/COAGULATION: Monitor for s/s of bleeding Monitor hemoglobin, coagulation studies as needed SKIN: Pressure ulcer prevention per facility protocol Specialty mattress ORTHO/REHAB: Continue PT/OT Prophylaxis: Continue GI and DVT prophylaxis Code Status: Full Resuscitation Disposition: TBD Case discussed with supervising physician plan of care agreed upon KAVON MEZA Aug 26, 2024 15:16
--- NOTE | 2024-08-26 15:34 | NUR ---
[facility] Follow-up: Patient re-assessed by wound healing team. Assessment and recommendations provided to primary nurse. Education provided. Addendum: 08/26/24 at 1535 by RADHA DE OLIVEIRA RN RN/ Amended: Links added.
[2024-08-26] MEDS ORDERED: IpraTROPium 0.5 MG/2.5 ML INH IH PRN (18:00)
[2024-08-26] MEDS: M.V.I. IV [ADULT] 10 ML, MULTITRACE-4 ADULT 10ML VIAL 3 ML in CLINIMIX-E4.25%AA/D5+LYT2... IV ONE (23:33)
[2024-08-27] VITALS (7 sets, daily range): BP systolic 110–123; BP diastolic 65–79; PULSE 79–94; RESP 16–20; TEMP 97.4–98.2; O2SAT 95–100
[2024-08-27] MEDS ORDERED: VANCOMYCIN 1G/250ML KIT 250 ML IV SCH (14:00)
--- NOTE | 2024-08-27 15:18 | DS ---
[facility] DISCHARGE SUMMARY Date Patient Seen: Aug 27, 2024 Time of Visit: 1200 Supervising Physician: Dr. Starkey Primary Care Physician: CHRISTEN JORGE MD (PCP) Outpatient Specialists: Inpatient Consults: Dr. Dayana Gonzales, general surgeon PROBLEM LIST: Severe sepsis, without septic shock, POA, we will complete treatment with IV antibiotics at LTAC Gram + cocci in blood cultures on 08/22/24 positive for Enterococcus , from RU ch est wall line we will complete treatment with IV antibiotics LTAC Acute candidemia catheter tip positive for Enterococcus Staphylococcus candiduria we will complete treatment with IV antibiotics at LTAC Acute complicated cystitis, POA, completed treatment Gastric fistula, recurrent and acute on chronic, POA, Left ejection fraction 55-60% with no evidence of vegetation per echocardiogram 08/23/2024 Chronic NPO status , on TPN at home Intractable Nausea and vomiting, POA, resolved Electrolyte derangement (hyponatremia, hypochloremia) Hyperglycemia without history of diabetes mellitus Chronic problem list: multiple abdominal surgeries, gastric fistula s/p TPN for the past year, established colostomy, Betlem muscular dystrophy, wheelchair- bound, and tachycardic HOSPITAL COURSE: HPI (per admitting provider)Ms. Monk is a 58-year-old female with a history of a multiple abdominal surgeries, gastric fistula s/p TPN for the past year, established colostomy, Betlem muscular dystrophy, wheelchair-bound, and tachycardic who presented to [facility] in the morning of 08/22/2024 for evaluation of fever (103 F) and chills onset yesterday. The patient also reported nausea, 10 episodes of vomiting which includes water and bile. She has been receiving 1500 cc of total parenteral nutrition daily at home. She has been admitted to [place] facility with sepsis and also here in July. Vital signs on arrival to ED: Temp is 100.4F, pulse 147bpm, respirations 18bpm, blood pressure 125/70 with a pulse oximetry of 96% on room air. I went to assess patient at bedside in room 407. Labs reviewed: WBCs and lactic acid WNL. Negative influenza and COVID swabs. The patient appeared comfortable, breathing was even and unlabored, in no distress. Patient reported that she was just given pain medication which helped. She reports that after her 1st surgery a surgeon lacerated the liver at [facility], was transferred to [facility] where she was there for one month then went to rehab for two weeks. She reports issue with a fistula since three years ago, complications after surgery including abdominal dehiscence, perforations, complications with prior hernia repairs. Patient was tearful and reported being tired of so many abdominal surgical complications. She reports that she was referred to a general surgeon in [place] for the abdominal complications for which she was hospitalized one month ago for sepsis. Patient was seen and examined by bedside with no family present. Patient is awake alert able to answer simple questions appropriately. Patient denies any chest pain or shortness of breadth. Denies any nausea vomiting or abdominal pain. Patient's blood cultures have been negative x2 days. Patient has been accepted to [facility]. Instructed patient will be getting discharged today. Patient will continue on IV antibiotics per ID recommendations. Patient will have PICC line placement at [facility] and will be switched over to TPN once PICC line has been inserted. For an outpatient to continue on PPN. Patient voices understanding agrees with plan has no questions at this time The patient was treated for the following problems: ACTIVE PROBLEM LIST FOR THE HOSPITALIZATION: CHRONIC PROBLEMS: continue previous management per PCP unless otherwise indicated CLIENT FINANCE ANALYST FINDINGS/RECOMMENDATIONS: Continue IV antibiotics per ID recommendations PROCEDURES: as mentioned above DISCHARGE MEDICATIONS: Vancomycin per pharmacy dosing Pepcid 20 mg b.i.d. IV Nystatin b.i.d. Clindamax Cefepime1 g every12 hours Fluconazole 200 mg Q 24 hours Fat emulsion Pt hemodynamically stable and afebrile at time of discharge. PCP notified of patients admission, hospital course and discharge. PHYSICAL EXAM: GENERAL: Alert, weak, awake oriented x 3 HEENT: EOMI, Sclera non icteric, moist mucosa NECK: Supple, no JVD, trachea midline LUNGS: Clear breath sounds bilaterally. No wheezes HEART: Regular rate and rhythm. Normal S1 and S2, without murmurs ABD: Well-healed vertical abdominal incision. Upper abdominal skin has large amount of excoriation from clear fluid draining on the abdominal skin. Notable large right lower abdominal hernia. Abdomen soft, generalized abdominal tenderness. Bowel sounds hypoactive. EXT: No clubbing cyanosis or edema. Right hand contractures. NEURO: Alert and oriented X3, follows commands, FOLLOW-UP: Follow-up with PCP in 2-3 days RECOMMENDATIONS: See Discharge Instructions This case was seen and discussed with my supervising physician. 35 minutes spent on discharge process, including evaluation of the patient, discussion with nursing staff, medication reconciliation and follow-up appointments KAVON MEZA Aug 27, 2024 15:18
--- NOTE | 2024-08-27 18:08 | NUR ---
nurse note patient to be transported via EMS to [facility], gave report to nurse Patricia from [facility], faxed over documents. patient to go with peripheral IV access
--- NOTE | 2024-08-27 18:49 | NUR ---
discharge faxed over all paperwork and orders to [facility], gave patient printed discharge paperwork, educated patient and family regarding follow up visits, medications, activity, diet, signs and symptoms to report/return to ER. patient going to [facility] facility. answered pt questions, patient and family understood.
--- NOTE | 2024-08-27 20:00 | NUR ---
discharge discharge to [facility] via ems, patient family at bedside, personal belongings with family member
== END 2024-08-27 20:00 | DRG 872 ==
LOC: EDH 06:37 → EDHIP 15:07 → 4BH 17:36
PROVIDERS: ADMIT Internal Medicine Critical Care Medicine; ATTEND Internal Medicine Critical Care Medicine
PROC: 0JPVXXZ Removal of Tunneled Vascular Access Device from Upper Extremity Subcutaneous Tissue and Fascia, External Approach (ICD-10-PCS; principal; 2024-08-24)
DX: A41.81 Sepsis due to Enterococcus (principal); E87.1 Hypo-osmolality and hyponatremia; K31.6 Fistula of stomach and duodenum; N30.00 Acute cystitis without hematuria; B37.49 Other urogenital candidiasis; E87.8 Other disorders of electrolyte and fluid balance, not elsewhere classified; G71.00 Muscular dystrophy, unspecified; K43.9 Ventral hernia without obstruction or gangrene; B95.2 Enterococcus as the cause of diseases classified elsewhere; Z20.822 Contact with and (suspected) exposure to COVID-19; E87.6 Hypokalemia; R65.20 Severe sepsis without septic shock; Z93.3 Colostomy status; Z99.3 Dependence on wheelchair; Z74.01 Bed confinement status; Z79.899 Other long term (current) drug therapy
CPT/HCPCS: 36415; 36589; 71045; 74178; 80048; 80053; 80061; 80076; 80202; 81001; 82150; 82306; 82525; 82550; 82607; 82746; 83036; 83605; 83690; 83735; 84145; 84255; 84425; 84443; 84446; 84484; 84590; 84630; 85025; 85027; 85610; 85730; 87040; 87070; 87076; 87086; 87186; 87635; 87804; 87880; 93005; 93306; 94640; 94664; 96361; 96372; 96374; 96375; 99156; 99291; G0378; J0692; J0696; J1171; J1450; J1644; J2250; J2405; J3010; J3370; J3480; J3490; J7030; J7042; Q9967; 3370; A6197

== ENCOUNTER 2024-12-09 07:36 | Day surgery (SDC) | payer OTHER ==
[2024-12-09] VITALS (12 sets, daily range): BP systolic 103–164; BP diastolic 49–79; PULSE 60–99; RESP 14–18; TEMP 97.5–98
[~2024-12-09] VITALS: Ht 147.3 cm; Wt 65.8 kg
[~2024-12-09 07:36] MED LIST changes: +0.9%NACL 1000ML 1,000 ML IV ONE; -CEPH500T PO; +IBUP-2077 PO; +LATA2.5D7 OP; +ONDA-243 PO; +PANT40TA54 PO; +TRAM50TA4 PO
[2024-12-09] MEDS ORDERED: LIDOCAINE PF 100MG/5ML (2%) SYRINGE 5ML ONE (10:09)
--- NOTE | 2024-12-09 11:48 | NUR ---
Full and complete discharge instructions given to Patient and Family both verbally and in writing. Explained GI procedure precautions and follow up. All questions answered. PICC line patent. Hub scrubbed and Flushed with 10 mls of NS. Sterile cap applied post dc from NS infusion. Home with Family W/C Scooter to POV.
== END 2024-12-09 11:50 | disposition home or self-care (01) ==
LOC: DAH 07:36 → ENDO 07:36
PROVIDERS: ATTEND Surgery
DX: K31.6 Fistula of stomach and duodenum (principal); K29.50 Unspecified chronic gastritis without bleeding; K22.89 Other specified disease of esophagus; K21.00 Gastro-esophageal reflux disease with esophagitis, without bleeding; Z90.49 Acquired absence of other specified parts of digestive tract; Z98.891 History of uterine scar from previous surgery; Z98.890 Other specified postprocedural states
CPT/HCPCS: 81025; 43239; 94640; J7030; J2003; J2704 ×2; A4620; A4215 ×2; A4223; A4222; A4221; A4663; A4606; J3490

== ENCOUNTER → 2025-02-24 | Outpatient (CLI) | payer OTHER ==
[~2025-02-24] MED LIST changes: -0.9%NACL 1000ML 1,000 ML IV ONE; -IBUP-2077 PO; -ONDA-243 PO
--- NOTE | 2025-02-24 14:26 | HMCIMG ---
US VENOUS DOPPLER BILATERAL REASON: ACUTE EMBOLISM AND THROMBOSIS OF UNSPECIFIED DEEP VEIN COMPARISON: None Technique: Bilateral venous doppler ultrasound was performed with spectral analysis and color flow imaging technique. FINDINGS: There is a normal appearance of the common femoral, deep femoral, the profunda femoris and popliteal veins. Proximal calf veins appear normal as well. There is normal response to compression and augmentation. There is no evidence of deep venous thrombosis. IMPRESSION: Normal bilateral lower extremity venous Doppler ultrasound.
== END | disposition home or self-care (01) ==
LOC: RAH 13:29
PROVIDERS: ATTEND Surgery
DX: I82.4Z1 Acute embolism and thrombosis of unspecified deep veins of right distal lower extremity (principal); R60.9 Edema, unspecified
CPT/HCPCS: 93970

== ENCOUNTER → 2025-05-05 | Outpatient (CLI) | payer OTHER | END | disposition home or self-care (01) | LOC: RAH 14:10 | PROVIDERS: ATTEND Family Medicine | DX: Z12.31 Encounter for screening mammogram for malignant neoplasm of breast (principal) | CPT/HCPCS: 77067 ==